=== PATIENT | female | born 2000 | race Caucasian/White ===

== ENCOUNTER 2019-11-19 13:41 | Emergency (ER) | payer OTHER, SELFPAY ==
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
[2019-11-19 13:47] VITALS: BP 149/98; PULSE 102; RESP 14; TEMP 37.1; O2SAT 100
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
--- NOTE | 2019-11-19 15:09 | PC.NURSE ---
eri at bedside to apply pat wrap. joyce sorensen at bedside and approved.
[2019-11-19 15:10] VITALS: BP 139/97; PULSE 109; RESP 18; O2SAT 97
== END 2019-11-19 15:12 | disposition home or self-care (01) ==
PROVIDERS: Emergency Provider Emergency Medicine
DX: S60.011A Contusion of right thumb without damage to nail, initial encounter (principal); V43.52XA Car driver injured in collision with other type car in traffic accident, initial encounter
CPT/HCPCS: 73140; 99283

== ENCOUNTER 2024-04-30 10:44 | Emergency (ER) | payer OTHER, SELFPAY ==
--- NOTE | ~2024-04-30 | US_ITS ---
Limited Abdominal Sonogram: Real-time sonographic imaging of the right upper quadrant was performed. Clinical History: Right upper quadrant pain Findings: The liver appears normal with no evidence of mass lesion or bile duct dilatation. Main por shaheen vein demonstrates normal direction of flow. The gallbladder is well distended, and appears normal with no evidence of gallstone or wall thickening. The common bile duct measures 2 mm. The visualize d pancreas, aorta, and IVC are unremarkable. Impression: No significant abnormality seen. Reviewed, dictated and finalized at location M. Impression: No significant abnormality seen.
[2024-04-30 11:00] VITALS: BP 124/80; PULSE 72; RESP 16; TEMP 36.6; O2SAT 100
[2024-04-30 11:18] LABS: BEDSIDEPREGUCG Negative (Negative)
[2024-04-30 11:30] LABS: Basophils Absolute Auto 0.1 K/mm3 (0.0-0.1); Basophils Percent Auto 0.8 % (0.2-1.2); Eosinophils Absolute Auto 0.1 K/mm3 (0-0.3); Eosinophils Percent Auto 1.8 % (0-4.4); Hematocrit 40.2 % (37.0-47.0); Hemoglobin 13.2 g/dL (12.0-15.0); Immature Granulocyte Absolute 0.03 K/mm3 (0.00-0.031); Immature Granulocyte Percent A 0.4 % (0-0.5); Lymphocytes Absolute Auto 2.85 K/mm3 (0.9-3.2); Lymphocytes Percent Auto 35.9 % (18.3-44.2); Mean Corpuscular HGB Conc 32.8 g/dl (32-36); Mean Corpuscular Hemoglobin 30.1 pg (26-34); Mean Corpuscular Volume 91.6 fl (80-100); Mean Platelet Volume 9.7 fl (7.4-10.4); Monocytes Absolute Auto 0.7 K/mm3 (0.1-0.6); Monocytes Percent Auto 9.1 % (2.6-8.5); Neutrophils Absolute Auto 4.1 K/mm3 (1.3-6.7); Platelet Count Result 337 k/mm3 (150-375); Red Blood Count 4.39 M/mm3 (4.2-5.4); Red Cell Distribution Width 12.6 % (11.5-14.5); White Blood Count 7.9 K/mm3 (4.5-10.0)
--- NOTE | 2024-04-30 11:38 | ED_ITS ---
HPI - Abdominal Pain General Chief Complaint: Abdominal Pain Stated Complaint: abd pain x 3 week Time Seen by Provider: 04/30/24 11:06 Source: patient Mode of arrival: ambulatory Limitations: no limitations History of Present Illness HPI narrative: This is a 23-year-old female who presents to the ED for chief complaint of right-sided abdominal pain beginning today. Patient states with the last couple of weeks she has had intermittent flank pain radiating into the right upper quadrant. States that she frequently has UTIs with urinary frequency and burning, however she is not having those symptoms today. Denies nausea, vomiting, diarrhea. Denies any specific pattern to the pain. She was told that it may be her gallbladder so she came to the ER. Denies fevers, chills, chest pain, shortness of breath. Related Data Home Medications ?Medication ?Instructions ?Recorded ?Confirmed ?Last Taken ?Type No Home Medications 11/19/19 Unknown History Allergies Allergy/AdvReac Type Severity Reaction Status Date / Time Penicillins Allergy Hives Verified 04/30/24 10:47 sulfamethoxazole (From Allergy Hives Verified 04/30/24 10:47 Sulfamethoxazole-Trimethoprim) trimethoprim (From Allergy Hives Verified 04/30/24 10:47 Sulfamethoxazole-Trimethoprim) Review of Systems 2 Review of Systems: All systems as dictated in [facility] Social History Social History (Updated 11/19/19 @ 14:11 by Blaine Benito, LISA) Smoking status: Never smoker Gender identity (if verbalized by the patient): Female Exam 2 Narrative: GENERAL: Well-appearing, well-nourished, and in no acute distress. HEAD: Normocephalic, atraumatic. EYES: PERRLA and EOMI. ENT: Nares clear, no rhinorrhea or epistaxis. Mucous membranes moist. Oropharynx without tonsillar hypertrophy exudate or other lesions. NECK: Supple. No adenopathy or masses. CHEST: No respiratory distress. Clear to auscultation. No wheezes rales or rhonchi HEART: Regular rate and rhythm. No murmur heard. Normal peripheral pulses. ABDOMEN: Soft, nontender, nondistended, normal active bowel sounds. Negative flank tenderness bilateral MSK: Normal range of motion. No edema. SKIN: Warm, dry, no rash. NEURO: Alert and oriented x4. No focal deficits. PSYCH: Normal mood and affect. Course Reevaluation(s) Reevaluation #1: Patient remains pain-free. Abdominal exam unchanged Date: 04/30/24 Time: 12:19 Vital Signs Vital signs: Vital Signs Temperature 97.9 F 04/30/24 11:00 Pulse Rate 72 04/30/24 11:00 Respiratory Rate 16 04/30/24 11:00 Blood Pressure 124/80 04/30/24 11:00 Pulse Oximetry 100 04/30/24 11:00 Temperature 97.9 F 04/30/24 12:23 Pulse Rate 78 04/30/24 12:23 Respiratory Rate 16 04/30/24 12:23 Blood Pressure 122/76 04/30/24 12:23 Pulse Oximetry 100 04/30/24 12:23 MDM - Abdominal Pain MDM Narrative Medical decision making narrative: This is a 23 female who presents to the ED for chief complaint of intermittent right upper quadrant and epigastric pain. Vitals are normal. Exam remarkable for the above with slight abdominal tenderness to the epigastrium. Urias sign equivocal. Lab work shows no acute findings with a normal white count. LFTs and bilirubin are normal. Right upper quadrant ultrasound shows no acute findings as well. Urinalysis does evidence of blood, however patient is currently on menstrual cycles, no concern for ureteral stone today. Patient feels reassured by the normal ultrasound. Discussed that her symptoms may be due to gastritis or biliary colic. Patient will be discharged in stable condition. Supportive measures discussed and return precautions given. Patient is understanding and agreeable with plan for discharge with PCP follow-up. Lab Data 04/30/24 11:20 04/30/24 11:20 Labs: Lab Results 04/30/24 04/30/24 04/30/24 Range/Units 11:13 11:15 11:20 WBC 7.9 (4.5-10.0) K/mm3 RBC 4.39 (4.2-5.4) M/mm3 Hgb 13.2 (12.0-15.0) g/dL Hct 40.2 (37.0-47.0) % MCV 91.6 (80-100) fl MCH 30.1 (26-34) pg MCHC 32.8 (32-36) g/dl RDW 12.6 (11.5-14.5) % Plt Count 337 (150-375) k/mm3 MPV 9.7 (7.4-10.4) fl Immature Gran % (Auto) 0.4 (0-0.5) % Neut % (Auto) 52.0 (45.5-73.1) % Lymph % (Auto) 35.9 (18.3-44.2) % Vermilion % (Auto) 9.1 H (2.6-8.5) % Eos % (Auto) 1.8 (0-4.4) % Baso % (Auto) 0.8 (0.2-1.2) % Lymph # (Auto) 2.85 (0.9-3.2) K/mm3 Vermilion # (Auto) 0.7 H (0.1-0.6) K/mm3 Eos # (Auto) 0.1 (0-0.3) K/mm3 Baso # (Auto) 0.1 (0.0-0.1) K/mm3 Abs Immat Gran (auto) 0.03 (0.00-0.031) K/mm3 Absolute Neuts (auto) 4.1 (1.3-6.7) K/mm3 Absolute Nucleated RBC 0.000 (0.0-0.012) K/mm3 Nucleated RBC % 0.0 (0.0-0.2) % Sodium 138 (137-145) mmol/L Potassium 3.7 (3.4-5.0) mmol/L Chloride 104 (98-107) mmol/L Carbon Dioxide 23 (22-30) mmol/L Anion Gap 11 (4-12) mmol/L BUN 8 (7-17) mg/dL Creatinine 0.62 L (0.7-1.0) mg/dL Estim Creat Clear Calc 137 ml/min Estimated GFR > 60 (59 - ) Glucose 92 (65-110) mg/dL Calcium 9.2 (8.4-10.2) mg/dL Total Bilirubin 0.4 (0.2-1.3) mg/dL AST 30 (14-36) U/L ALT 36 H (6-35) U/L Alkaline Phosphatase 73 (38-126) U/L Total Protein 8.0 (6.3-8.2) g/dL Albumin 4.6 (3.5-5.1) g/dL Lipase 98 (23-300) U/L Urine Color Yellow (Yellow) Urine Appearance Clear (Clear) Urine pH 6.0 (5.0-9.0) Ur Specific [place] 1.004 (1.001-1.035) Urine Protein Negative (Negative) mg/dL Urine Glucose (UA) Negative (Negative) mg/dL Urine Ketones Negative (Negative) mg/dL Ur Blood (Man) 3+ H (Negative) Urine Nitrate Negative (Negative) Urine Bilirubin Negative (Negative) Urine Urobilinogen 0.2 (<2.0) mg/dL Leukocyte Esterase Rfl Trace H (Negative) TIFFANY/UL Urine RBC 11-20 H (0-2) /hpf Urine WBC 0-5 (0-3) /hpf Ur Squamous Epith Cells None seen (Few) /hpf Urine Bacteria None seen /hpf Urine Casts 0-2 POC Urine HCG, Qual Negative (Negative) Imaging Data Radiologist's impression: ITS Impressions Abdomen Ultrasound 04/30/24 12:09 Impression: No significant abnormality seen. Discharge Plan Discharge Clinical Impression: Abdominal pain Patient Disposition: Home, Self-Care Condition: Stable Instructions: Antibiotic Form Additional Instructions: Exam and imaging today are reassuring overall. Please follow-up with PCP on this issue. If this issue continues she may need to see General surgery for biliary colic. Continue to avoid fatty foods. Suggest doubling your omeprazole until otherwise directed by PCP. If you have any new or worsening symptoms please return to the ER for further evaluation. Patient Language: Romanian Prescriptions: No Action No Home Medications Follow-up/Referrals: Jade Prater MD [Physician] - UNKNOWN,DOCTOR [Primary Care Provider] - Time of Disposition: 12:22
[2024-04-30 11:41] LABS: Add Urine Microscopic? YES; Appearance Urine Clear (Clear); Bacteria Urine None Seen /hpf; Bilirubin Urine Negative (Negative); Blood Urine 3+ (Negative); Color Urine Yellow (Yellow); Glucose Urine UA Negative (Negative); Ketones Urine Negative (Negative); Leukocyte Esterase Ur Trace LEU/UL (Negative); Nitrate Urine Negative (Negative); Non Pathogenic Casts 0-2; Protein Urine Negative (Negative); Specific Grav Ur 1.004 (1.001-1.035); Squamous Epithelial Cell Urine None Seen /hpf (Few); Urobilinogen Urine 0.2 mg/dL (<2.0); WBC Urine 0-5 /hpf (0-3)
[2024-04-30 11:44] LABS: Alanine Aminotransferase 36 U/L (6-35); Albumin Level 4.6 g/dL (3.5-5.1); Alkaline Phosphatase 73 U/L (38-126); Anion Gap 11 mmol/L (4-12); Aspartate Amino Transferase 30 U/L (14-36); Bilirubin,Total 0.4 mg/dL (0.2-1.3); Blood Urea Nitrogen 8 mg/dL (7-17); Calcium 9.2 mg/dL (8.4-10.2); Carbon Dioxide 23 mmol/L (22-30); Chloride 104 mmol/L (98-107); Estimated CRCL calculation 137 ml/min; Estimated Glomerular Filt Rate > 60; Glucose 92 mg/dL (65-110); Lipase 98 U/L (23-300); Potassium 3.7 mmol/L (3.4-5.0); Sodium 138 mmol/L (137-145)
--- OUTSIDE RECORDS SUMMARY | 2024-04-30 12:09 | XMS_ITS | Clinical Summary ---
Author Organization [facility] Address [address] [place] [address] Care Team Providers Care Pound Attendant Name Role Phone Sadaf Christensen Primary Care Provider [phone] Allergies Active Allergy Reactions Criticality Noted Date Comments Penicillin V Unknown 01/14/2021 Sulfa Antibiotics Unknown 11/28/2018 Medications doxycycline hyclate (VIBRAMYCIN) 100 MG capsule TAKE 1 CAPSULE BY MOUTH TWICE DAILY FOR 7 DAYS 02/01/2022 Active escitalopram (LEXAPRO) 10 MG tablet Take 10 mg by mouth daily. 01/12/2022 Active methylPREDNISol one, RADHA, (MEDROL DOSEPAK) 4 MG tablet Take 1 tablet (4 mg total) by mouth daily. 6 TABLETS ON DAY ONE, 5 TABLETS DAY TWO, 4 TABLETS DAY THREE, 3 TABLETS DAY FOUR, 2 TABLETS DAY FIVE, AND 1 TABLET DAY SIX 1 each 02/03/2022 Active guaiFENesin ER (MUCINEX) 600 MG 12 hr tablet Take 2 tablets (1,200 mg total) by mouth 2 (two) times daily. 28 tablet 02/03/2022 Active Active Problems No known active problems Family History Medical History Relation Comments Cancer Father liver cancer Diabetes Father Cancer Mother retinal cancer Relation Status Comments Father Alive Mother Alive Social History Tobacco Use Types Packs/Day Years Used Date Smoking Tobacco: Never Smokeless Tobacco: Never Tobacco Cessation:Counseling Given: Not Answered Alcohol Use Standard Drinks/Week Comments Yes 0 (1 standard drink = 0.6 oz pur e alcohol) socially Comments No Sex and Gender Information Value Date Recorded Sex Assigned at Not on file Legal Sex Female 8:25 PM CDT Gender Identity Not on file Sexual Orientation Not on file Last Filed Vital Signs Vital Sign Reading Time Taken Comments Blood Pressure 108/74 08/22/2022 11:30 AM CDT Pulse 68 08/22/2022 11:30 AM CDT Temperature 36.4 C (97.5 F) 08/22/2022 10:14 AM CDT Respiratory Rate 14 08/22/2022 11:3 0 AM CDT Oxygen Saturation 98% 08/22/2022 11: 30 AM CDT Inhaled Oxygen Concentration - - Weight 108.3 kg (238 lb 12.1 oz) 2022 10:16 AM CDT Height 162.6 cm (5' 4 ) 08/22/2022 10:1 4 AM CDT Body Mass Index 40.98 08/22/2022 10:14 AM CDT Plan of Treatment Upcoming Encounters Date Type Department Care Team (Late st Contact Info) Description 05/16/2024 2:20 PM CDT Office Visit [facility] - [place] [address] [place] [address] Sadaf Christensen, [address] [place] [address] Health Maintenance Due Date Last Done Comments Cervical Cancer Screening Pap Smear (Age 21 to 29) Every 3 Years 1999 Cervical Cancer Screening 1999 Annual Physical 08/22/2002 Hepatitis C 08/22/2017 DTaP, Tdap and Td Vaccines (7 - Td or Tdap) 09/27/2020 09/27/2010, 11/16/2004, 02/26/2001, Additional history exists COVID-19 Vaccine ( season) 2023 03/15/2020, 02/23/2020 Influenza Adult (#1) 2023 03/01/2013 Hepatitis B Vaccines Completed 05/30/2000, 1999, 1999 Pneumococcal Vaccine: Pediatrics (0 to 5 Years) and At-Risk Patients (6 to 64 Years) Aged Out 11/23/2000, 03/21/2000, 1999, Additional history exists No longer eligible based on patient's age to complete this topic HPV Vaccines Completed 06/03/2011, 12/14, 09/27/2010 Meningococcal Vaccine Completed 08/24/2015, 011 Meningococcal B Vaccine Aged Out No l onger eligible based on patient's age to complete this topic RSV Immunizations Under 20 Months Aged Out No longer eligible based on patient's age to complete this topic Insurance [employer] OPEN ACCESS [facility] Member Subscriber Plan / Payer (Ef fective 2024-Present) Name:Epifanio Moore Relation to Subscriber:Self Name:Epifanio Moore Payer ID:Not on file Group ID:Not on file Type:Not on file Address: [facility] [id number] [place] [id number] Care Teams Pound Attendant Relationship Specialty Start Date End Date Sadaf Christensen DO [address] [facility] [address] [place] [address] PCP - General FAMILY PRACTICE 04/29/24
--- OUTSIDE RECORDS SUMMARY | 2024-04-30 12:09 | XMS_ITS | Encounter Summary ---
Author Organization [facility] Address [address] [place] [address] Care Team Providers Care Tennis Player Name Role Phone , Generic Conversion Primary Care Provider Unavailable Anila Le MD Primary Care Provider [phone] None, Provider Primary Care Provider UnavailSuzan Taylor DO Primary Care Provider [phone] Sadaf Christensen DO Primary Care Provider [phone] Encounter Details Date Type Department Care Team (Late st Contact Info) Description 12/17/2016 [place] [address] Md Generic ConversionMD Social History Tobacco Use Types Packs/Day Years Used Date Smoking Tobacco: Never Assessed Comments Unknown Sex and Gender Information Value Date Recorded Sex Assigned at Not on file Legal Sex Female 8:25 PM CDT Gender Identity Not on file Sexual Orientation Not on file documented as of this encounter Plan of Treatment Upcoming Encounters Date Type Department Care Team (Late st Contact Info) Description 05/16/2024 2:20 PM CDT Office [facility] - [place] [address] [place], [place] [id number] Sadaf Christensen DO [address] [place] [address] documented as of this encounter Visit Diagnoses Not on filedocumented in this encounter Care Teams Tennis Player Relationship Specialty Start Date End Date Escobar Larson MD PCP - General 03/09/15 Anila Le MD PCP - General PEDIATRICS 11/28/18 01/13/21 None, Provider, PCP - General 01/14/21 02/02/22 Suzan Pena DO PCP - General FAMILY PRACTICE 02/03/22 04/28/24 Sadaf Christensen DO [address] [facility] [address] [place] [address] PCP - General FAMILY PRACTICE 04/29/24 documented as of this encounter
--- OUTSIDE RECORDS SUMMARY | 2024-04-30 12:09 | XMS_ITS | Clinical Summary ---
Author Organization [facility] Address [address] [place] [address] Care Team Providers Care Supervisor Pleating Name Role Phone Unavailable Primary Care Provider Unavailabl e Source Comments [facility],non-owned Affiliates and Associated Physician Practices is amultiple site organization consisting of ambulatory clinics and hospital sitesin [place], [place], [place] and [place]. This disclosure is being madepursuant to the Care Everywhere program and may not contain all information available regarding this patient. Last updated 17.[facility] Social History Tobacco Use Types Packs/Day Years Used Date Smoking Tobacco: Never Assessed Sex and Gender Information Value Date Recorded Sex Assigned at Not on file Gender Identity Not on file Sexual Orientation Not on file Plan of Treatment Health Maintenance Due Date Last Done Comments PAP SMEAR 1999 HIV SCREENING 08/22/2014 HPV VACCINE (1 - 3-dose series) 08/22/2014 CHLAMYDIA/GONORRHEA SCREENING 2015 HEPATITIS C SCREENING 08/18/2017 DTAP/TDAP/TD VACCINES (1 - Tdap) 08/22/2018 HEPATITIS B VACCINE (1 of 3 - 19+ 3-dose series) 08/22/2018 COVID-19 VACCINE (1 - 2023-2 5 season) 2023 INFLUENZA VACCINE (#1) 2023 DEPRESSION SCREENING 02/14/2024 ZOSTER VACCINE (1 of 2) 08/22/2049 HIB VACCINE Aged Out No longer eligi ble based on patient's age to complete this topic MENINGOCOCCAL (Group B) VACC INE SHARED DECISION-MAKING Aged Out No longer eligibl e based on patient's age to complete this topic MENINGOCOCCAL GROUPS A/C/Y/W VACCINE Aged Out No longer eligible b ased on patient's age to complete this topic PNEUMOCOCCAL VACCINE Aged Out No long er eligible based on patient's age to complete this topic
[2024-04-30 12:23] VITALS: BP 122/76; PULSE 78; RESP 16; TEMP 36.6; O2SAT 100
--- OUTSIDE RECORDS SUMMARY | 2024-04-30 12:58 | XMS_ITS | Clinical Summary ---
Author Organization [facility] Address [address] [place] [address] Care Team Providers Care Pharmacy Operations Specialist Name Role Phone Sadaf Christensen Primary Care Provider [phone] Allergies Active Allergy Reactions Criticality Noted Date [...] Description 05/16/2024 2:20 PM CDT Office Visit [facility] - [place] [address] [place] [address] Sadaf Christensen, [address] [place] [address] Health Maintenance Due Date Last Done Comments [...] patient's age to complete this topic Insurance [employer] OPEN ACCESS [facility] Member Subscriber Plan / Payer (Ef fective 2024-Present) Name:Epifanio Moore Relation to Subscriber:Self Name:Epifanio Moore Payer ID:Not on file Group ID:Not on file Type:Not on file Address: [facility] [id number] [place] [id number] Care Teams Pharmacy Operations Specialist Relationship Specialty Start Date End Date Sadaf Christensen DO [address] [facility] [address] [place] [address] PCP - General FAMILY PRACTICE 04/29/24
--- OUTSIDE RECORDS SUMMARY | 2024-04-30 12:58 | XMS_ITS | Encounter Summary ---
Author Organization [facility] Address [address] [place] [address] Care Team Providers Care Hospital Orderly Name Role Phone , Generic Conversion Primary Care Provider Unavailable Anila Le MD Primary Care Provider [phone] None, Provider Primary Care Provider UnavailSuzan Taylor DO Primary Care Provider [phone] Sadaf Christensen DO Primary Care Provider [phone] Encounter Details Date Type Department Care Team (Late st Contact Info) Description 12/17/2016 [place] [address] Md Generic ConversionMD Social History Tobacco Use [...] Description 05/16/2024 2:20 PM CDT Office Visit [facility] Medical [facility] Mult[facility] - [place] [address] [place], [place] [id number] Sadaf Christensen DO [address] [place] [address] documented as of this encounter Visit Diagnoses Not on filedocumented in this encounter Care Teams Hospital Orderly Relationship Specialty Start Date End Date Escobar Larson MD PCP - General 03/09/15 Anila Le MD PCP - General PEDIATRICS 11/28/18 01/13/21 None, Provider, PCP - General 01/14/21 02/02/22 Suzan Pena DO PCP - General FAMILY PRACTICE 02/03/22 04/28/24 Sadaf Christensen DO [address] [facility] [place] [address] PCP - General FAMILY PRACTICE 04/29/24 documented as of this encounter
--- OUTSIDE RECORDS SUMMARY | 2024-04-30 12:58 | XMS_ITS | Clinical Summary ---
Author Organization [facility] Address [address] [facility] [place] [address] Care Team Providers Care Petal Cutter Name Role Phone Unavailable Primary Care Provider Unavailabl e Source Comments [facility] [employer],non-owned Affiliates and Associated Physician Practices is amultiple site organization consisting of ambulatory clinics and hospital sitesin [place], [place], [place] and [place]. This disclosure is being madepursuant to the Care Everywhere program and may not contain all information available regarding this patient. Last updated 17.[facility] [facility] Social History Tobacco Use Types Packs/Day Years [...]
== END 2024-04-30 12:35 | disposition home or self-care (01) ==
PROVIDERS: Emergency Provider Physician Assistant
DX: R10.9 Unspecified abdominal pain (principal)
CPT/HCPCS: 36415; 76705; 80053; 81001; 81025; 83690; 85025; 99284

== ENCOUNTER 2024-05-22 15:56 | Outpatient (CLI) | payer OTHER, SELFPAY ==
[2024-05-22 16:38] LABS: Amylase 66 U/L (30-110)
--- OUTSIDE RECORDS SUMMARY | 2024-05-22 17:02 | XMS_ITS | Encounter Summary ---
Author Organization [facility] Address [address] [place] [id number] Care Team Providers Care Supervisor [employer] Name Role Phone , Generic Conversion Primary Care Provider Unavailable Anila Le MD Primary Care Provider [phone] None, Provider Primary Care Provider UnavailSuzan Taylor DO Primary Care Provider [phone] Sadaf Christensen DO Primary Care Provider [phone] Encounter Details Date Type Department Care Team (Late st Contact Info) Description 12/17/2016 [place] [address] Md Generic ConversionMD Social History Tobacco Use [...] Care Team (Late st Contact Info) Description 06/06/2024 3:40 PM CDT Office Visit [facility] [place] [address] [place], [place] [id number] Sadaf Christensen DO [address] [place] [address] documented as of this encounter Visit Diagnoses Not on filedocumented in this encounter Care Teams Supervisor [employer] Relationship Specialty Start Date End Date Escobar Larson MD PCP - General 03/09/15 Anila Le MD PCP - General PEDIATRICS 11/28/18 01/13/21 None, Provider, PCP - General 01/14/21 02/02/22 Suzan Pena DO PCP - General FAMILY PRACTICE 02/03/22 04/28/24 Sadaf Christensen DO [address] [facility] [address] [place] [address] PCP - General FAMILY PRACTICE 04/29/24 documented as of this encounter
--- OUTSIDE RECORDS SUMMARY | 2024-05-22 17:02 | XMS_ITS | Clinical Summary ---
Author Organization [facility] Address [address] [place] [address] Care Team Providers Care Tree Surgeon Name Role Phone Mariann Christensenh Thalia HASKINS Primary Care Provider [phone] Allergies Active Allergy Reactions Criticality Noted Date Comments Penicillin V Unknown 01/14/2021 From childhood Sulfa Antibiotics Unknown 11/28/2018 From childhood Medications spironolactone (ALDACTONE) 100 MG tablet Take 1 tablet (100 mg total) by mouth daily. 4 Active clindamycin (CLEOCIN) 75 MG/5ML solution Take by mouth 3 (three) times daily. Active escitalopram (LEXAPRO) 10 MG tabletIndication s:Generalized anxiety disorder Take 1 tablet (10 mg total) by mouth daily. 90 tablet 5 08/16/19 25 Active doxycycline hyclate (VIBRAMYCIN) 100 MG capsule TAKE 1 CAPSULE BY MOUTH TWICE DAILY FOR 7 DAYS 2 05/17/19 25 Discontinue d(Therapy completed) escitalopram (LEXAPRO) 10 MG tablet Take 10 mg by mouth daily. 2 05/17/19 25 Discontinue d(Therapy completed) methylPREDNISRADHA peterson, (MEDROL DOSEPAK) 4 MG tablet Take 1 tablet (4 mg total) by mouth daily. 6 TABLETS ON DAY ONE, 5 TABLETS DAY TWO, 4 TABLETS DAY THREE, 3 TABLETS DAY FOUR, 2 TABLETS DAY FIVE, AND 1 TABLET DAY SIX 1 each 2 05/17/19 25 Discontinue d(Therapy completed) guaiFENesin ER (MUCINEX) 600 MG 12 hr tablet Take 2 tablets (1,200 mg total) by mouth 2 (two) times daily. 28 tablet 2 05/17/19 25 Discontinue d(Therapy completed) omeprazole DR 20 MG Tablet Delayed Release Dispersible dispersible tablet Take 40 mg by mouth daily. 05/17/19 25 Discontinue d(Other- Please enter comment in Notes field) Active Problems Problem Noted Date Diagnosed Date Pain of upper abdomen 05/16/2024 Overview (05/16/2024): Initial visit 05/16/2024: She reports she went to emergency department at [place] 04/30/2024 for abdominal pain. She reports abdominal pain started out with just eating food however last Monday she was having a weird burning sensation which prompted her to go to the emergency department. She reports nausea comes and goes however denies vomiting. She reports she was told it was biliary colic and was referred and has upcoming appointment with general surgery 05/21/2024 for evaluation. She reports she is on a low-fat diet which does seem to help. She denies possibility of as she is sexually active with a woman. Assessment & Plan (05/16/2024 3:30 PM CDT): Exam unremarkable. Etiology of pain could be related to biliary colic. Follow-up with general surgeon as scheduled. She may need MRCP. Requested records from ED visit at [facility]. Cervical cancer screening 05/16/2024 Overview (05/16/2024): Initial visit 05/16/2024: She reports she had Pap in [address] Suzan Pena through [facility]. Assessment & Plan (05/16/2024 3:27 PM CDT): Requesting records. Class 3 severe obesity witho ut serious comorbidity with body mass index (BMI) of 40.0 to 44.9 in adult, unspecified obesity type 05/16/2024 Gastroesophageal reflux disease without esophagi tis 05/16/2024 Overview (05/16/2024): Initial visit 05/16/2024: She reports she has had reflux and been taking omeprazole 20 mg daily on and off since the age of 17. Assessment & Plan (05/16/2024 3:28 PM CDT): Discussed with patient that I would like to test her for Helicobacter pylori infection with the stool sample however I need her to discontinue PPI for at least 14 days prior to collecting stool sample. She is agreeable and will complete through [facility]. Generalized anxiety disorder 05/16/2024 Overview (05/16/2024): Initial visit 05/16/2024: Was on Lexapro for 1.5 years however had a hard time taking pills daily. She reports she used to go to therapy and was able to develop coping mechanisms. She reports her anxiety revolves primarily around her being in a car. She reports it is better if she is driving. TAVO-7 (Generalized Anxiety Disorder) Screening 05/16/2024 2:55 PM TAVO-7 Feeling nervous, anxious, or on edge 1 Not being able to stop or control worrying 1 Worrying too much about different things 1 Trouble relaxing 0 Being so restless that it is hard to sit still 0 Becoming easily annoyed or irritable 1 Feeling afraid as if something awful might happen 0 TAVO-7 Total Score 4 How difficult have these problems made it for you to do your work, take care of things at home, or get along with other people? Somewhat difficult Assessment & Plan (05/16/2024 3:26 PM CDT): We will start patient on escitalopram 10 mg once daily. She is counseled on potential side effects of medication and is aware she has been on this medication previously. Mild intermittent asthma without complication (H HS/HCC) 05/16/2024 Overview (05/16/2024): Initial visit 05/16/2024: She reports she hasn't had inhaler in years . Assessment & Plan (05/16/2024 3:29 PM CDT): Stable. Continue to monitor. Stomach pain 04/13/2024 Overview (05/16/2024): Went to ER for stomach pain and sharp cramps on both sides of upper the upper abdomen. They did an ultrasound and blood test but both were negative. Stated since everything was looking normal they thought it could still be my gallbladder but it wasn't inflamed so they referred me to a general surgeon and told me to see PCP. Hidradenitis suppurativa 08/03/2023 Overview (05/16/2024): Initial visit for 325: She reports she has hidradenitis suppurativa and follows with Derm once every 6 months. She reports she is on spironolactone 100 mg daily and clindamycin topical solution. She reports it is controlled. Assessment & Plan (05/16/2024 3:27 PM CDT): Continue plan of care per dermatology. Resolved Problems Problem Noted Date Diagnosed Date Resolved Date Cervical cancer screening 05/07/2024 Encounters Date Type Department Care Team Description 05/16/2024 2:20 PM CDT Office Visit [facility] [place] [address] [place] [address] Sadaf Christensen, DO New Patient (Pt states she is having ABD issues and sees a general surgeon [facility]. /But wanted to get a PCP to see if there were any other recommendations pt states she has been on a low fat diet for 4 weeks. /) 05/16/2024 Travel from Last 3 Months Immunizations Name Administration Dates Next Due Dtap (Acel-Immune) 11/16/2004, 2,03/21/2000,12/14,1999 HPV4 (Gardasil) 06/03/2011,12/24/2010,09/27/2010 Hepatitis A (Generic) 09/27/2010 Hepatitis A (Havrix [address].U) 11/21/2006 Hepatitis B Pediatric 05/30/2000,1999,08/13 Hib (Generic) 02/26/2001, 1,1999,10/14 Influenza Adult (Generic) 03/01/2013 MENINGOCOCCAL A C Y&W-135 oligosaccharide (MENVEO) 08/24/2015,09/27/2010 MMR (MMRII) 11/16/2004,11/23/2000 PFIZER COVID-19 (ORIGINAL FO RMULATION, PURPLE CAP) mRNA, LNP-S, PF, 30 MCG/0.3 ML DOSE 03/15/2020,02/23/2020 Pneumococcal (Prevnar 7) 11/23/2000,07/2000,1999,10/14 Polio IPV (Ipol) 11/16/2004, 2,1999,10/14 Tdap (Adacel) 05/16/2024 Tdap (Generic) 09/27/2010 Varicella (Varivax) 11/21/2006,08/29/2000 Family History Medical History Relation Comments Alcohol Abuse Father Asthma Father Cancer Father liver cancer Diabetes Father Drug Abuse Father Early Father Cancer Mother retinal cancer Depression Mother Drug Abuse Mother Hypertension Mother Alcohol Abuse Paternal Grandfather Early Paternal Grandfather Relation Status Comments Father Alive Mother Alive Paternal Grandfather Social History Tobacco Use Types Packs/Day Years Used Date Smoking Tobacco: Never Smokeless Tobacco: Never Tobacco Cessation:Counseling Given: No Alcohol Use Standard Drinks/Week Comments Not Currently 0 (1 standard drink = 0.6 oz pur e alcohol) socially PHQ-2 Answer Date Recorded Patient Health Questionnaire-2 Score 0 05/16/2024 Comments No Sex and Gender Information Value Date Recorded Sex Assigned at Not on file Legal Sex Female 8:25 PM CDT Gender Identity Not on file Sexual Orientation Not on file Last Filed Vital Signs Vital Sign Reading Time Taken Comments Blood Pressure 126/81 05/16/2024 2:20 PM CDT Pulse 68 05/16/2024 2:20 PM CDT Temperature 36.5 C (97.7 F) 05/16/2024 2:20 PM CDT Respiratory Rate 16 05/16/2024 2:20 PM CDT Oxygen Saturation 100% 05/16/2024 2:20 PM CDT Inhaled Oxygen Concentration - - Weight 106.6 kg (235 lb) 05/16/2024 2:20 PM CDT Height 162.6 cm (5' 4 ) 05/16/2024 2:20 PM CDT Body Mass Index 40.34 05/16/2024 2:20 PM CDT Plan of Treatment Upcoming Encounters Date Type Department Care Team (Late st Contact Info) Description 06/06/2024 3:40 PM CDT Office Visit [facility] [place] [address] [place] [address] Sadaf Christensen, DO [address] [place] [address] Health Maintenance Due Date Last Done Comments Cervical Cancer Screening Pap Smear (Age 21 to 29) Every 3 Years 1999 Cervical Cancer Screening 1999 Annual Physical 08/22/2002 Pneumococcal Vaccine: Pediatrics (0 to 5 Years) and At-Risk Patients (6 to 64 Years) (1 of 2 - PCV) 08/22/2005 11/23/2000, 03/21/2000, 1999, Additional history exists Chlamydia Screening Females ages 16-24 2015 Hepatitis C 08/22/2017 COVID-19 Vaccine ( season) 2025 03/15/2020, 02/23/2020 Postponed from 10/15/2023 (Patient Refused) DTaP, Tdap and Td Vaccines (8 - Td or Tdap) 05/16/2034 05/16/2024, 09/27/2010, 11/16/2004, Additional history exists Hepatitis B Vaccines Completed 05/30/2000, 1999, 1999 HPV Vaccines Completed 06/03/2011, 12/14, 09/27/2010 Meningococcal Vaccine Completed 08/24/2015, 011 PHQ-2 (Physician [place]) Completed 05/16/2024 Meningococcal B Vaccine Aged Out No l onger eligible based on patient's age to complete this topic RSV Immunizations Under 20 Months Aged Out No longer eligible based on patient's age to complete this topic Procedures Procedure Name Priority Date/Time Associated Diagnosis Comments CBC W/DIFF AUTOMATED Routine 05/16/2024 3:25 PM CDT Class 3 severe obesity without serious comorbidity with body mass index (BMI) of 40.0 to 44.9 in adult, unspecified obesity type (CMS/HCC) COMPREHENSIVE METABOLIC PANEL Routine 05/16/2024 3:25 PM CDT Class 3 severe obesity without serious comorbidity with body mass index (BMI) of 40.0 to 44.9 in adult, unspecified obesity type (CMS/HCC) LIPID PANEL Routine 05/16/2024 3:25 PM CDT Class 3 severe obesity without serious comorbidity with body mass index (BMI) of 40.0 to 44.9 in adult, unspecified obesity type (CMS/HCC) VITAMIN D, 25 OH Routine 05/16/2024 3:25 PM CDT Class 3 severe obesity without serious comorbidity with body mass index (BMI) of 40.0 to 44.9 in adult, unspecified obesity type (CMS/HCC) TSH W/REFLEX Routine 05/16/2024 3:25 PM CDT Class 3 severe obesity without serious comorbidity with body mass index (BMI) of 40.0 to 44.9 in adult, unspecified obesity type (CMS/HCC) HEMOGLOBIN, GLYCOSYLATED Routine 05/16/2024 3:25 PM CDT Class 3 severe obesity without serious comorbidity with body mass index (BMI) of 40.0 to 44.9 in adult, unspecified obesity type (CMS/HCC) URINALYSIS, AUTO, COMPLETE Routine 05/16/2024 3:25 PM CDT Class 3 severe obesity without serious comorbidity with body mass index (BMI) of 40.0 to 44.9 in adult, unspecified obesity type (CMS/HCC) from Last 3 Months Results * TSH W/REFLEX (05/16/2024 3:25 PM CDT) TSH 1.330 0.358 - 3.740 uIU/ML 05/17/2024 11:52 AM CDT [facility] 05/16/2024 3:25 PM CDT Sadaf Vásquez Fermin HASKINS LABORATORY Final Result Performing Organization Address [facility] Co de Phone Number [facility] [address] [place] [address], [place] [phone] * (ABNORMAL) HEMOGLOBIN, GLYCOSYLATED (05/16/2024 3:25 PM CDT) HGB A1C 5.4 4.5 - 6.2 % 05/17/2024 9:51 AM CDT [facility] ESTIMATED AVG GLUCOSE 108(H) 74 - 106 MG/DL 05/17/2024 9:51 AM CDT [facility] 05/16/2024 3:25 PM CDT Sadaf Thalia Christensen DO LABORATORY Final Result Performing Organization Address [facility] de Phone Number [facility] [address] [place] [address], [place] [phone] * (ABNORMAL) URINALYSIS (05/16/2024 3:25 PM CDT) COLOR (U) YELLOW 05/16/2024 7:42 PM CDT [facility] TRANSPARENCY CLEAR CLEAR 05/16/2024 7:42 PM CDT [facility] SPECIFIC GRAVITY (U) 1.020 1.003 - 1.040 05/16/2024 7:42 PM CDT [facility] U PH 6.0 5.0 - 9.0 05/16/2024 7:42 PM CDT [facility] PROTEIN RANDOM (U) NEGATIVE NEGATIVE 05/16/2024 7:42 PM CDT [facility] GLUCOSE (U) NEGATIVE NEGATIVE 05/16/2024 7:42 PM CDT [facility] KETONES MG/DL (U) NEGATIVE NEGATIVE 05/16/2024 7:42 PM CDT [facility] BILIRUBIN (U) NEGATIVE NEGATIVE 05/16/2024 7:42 PM CDT [facility] BLOOD (U) NEGATIVE NEGATIVE 05/16/2024 7:42 PM CDT [facility] UROBILINOGEN 0.2 0.0 - 2.0 EU/DL 05/16/2024 7:42 PM CDT [facility] NITRITES NEGATIVE NEGATIVE 05/16/2024 7:42 PM CDT [facility] LEUKOCYTES (U) NEGATIVE NEGATIVE 05/16/2024 7:42 PM CDT [facility] RBC/HPF 0-3 0 - 3 /HPF 05/16/2024 7:42 PM CDT [facility] WBC/HPF 0-3 0 - 3 /HPF 05/16/2024 7:42 PM CDT [facility] EPI/HPF 0-3 /HPF 05/16/2024 7:42 PM CDT [facility] BACTERIA (U) TRACE(A) NONE SEEN 05/16/2024 7:42 PM CDT [facility] MUCUS FEW 05/16/2024 7:42 PM CDT [facility] URINE SPECIMEN FROM [facility] / Unknown 05/16/2024 3:25 PM CDT Sadaf Christensen DO URINE ORDERABLES Final Result [facility] [address] [place] [address], * COMPREHENSIVE METABOLIC PANEL (05/16/2024 3:25 PM CDT) SODIUM S/P/B 138 136 - 145 MMOL/L 05/17/2024 11:52 AM CDT [facility] POTASSIUM S/P/B 4.1 3.5 - 5.1 MMOL/L 05/17/2024 11:52 AM CDT [facility] CHLORIDE S/P/B 102 98 - 107 MMOL/L 05/17/2024 11:52 AM CDT [facility] CO2 28.3 21 - 32 MMOL/L 05/17/2024 11:52 AM CDT [facility] GLUCOSE 87 70 - 99 MG/DL 05/17/2024 11:52 AM CDT [facility] BUN 8 7 - 18 MG/DL 05/17/2024 11:52 AM CDT [facility] CREATININE S/P/B 0.68 0.55 - 1.02 MG/DL 05/17/2024 11:52 AM CDT [facility] CALCIUM S/P/B 9.3 8.4 - 10.5 MG/DL 05/17/2024 11:52 AM CDT [facility] BILIRUBIN TOTAL S/P/B 0.2 0.2 - 1.0 MG/DL 05/17/2024 11:52 AM CDT [facility] ALKALINE PHOSPHATASE S/P/B 76 37 - 98 U/L 05/17/2024 11:52 AM CDT [facility] AST 26 15 - 37 U/L 05/17/2024 11:52 AM CDT [facility] ALT 48 14 - 59 U/L 05/17/2024 11:52 AM CDT [facility] TOTAL PROTEIN S/P/B 8.1 6.4 - 8.2 G/DL 05/17/2024 11:52 AM CDT [facility] ALBUMIN S/P/B 4.3 3.4 - 5.0 G/DL 05/17/2024 11:52 AM CDT [facility] ANION GAP 7.7 5 - 15 MMOL/L 05/17/2024 11:52 AM CDT [facility] Comment:REFERENCE RANGE NOT ESTABLISHED OSMOLALITY (CALC) 284 MOSM/KG 025 11:52 AM CDT [facility] Comment:REFERENCE RANGE NOT ESTABLISHED GFR ESTIMATE >90 >90 ML/MIN/1. 73 M2 05/17/2024 11:52 AM CDT [facility] GFR NOTES GFR REFERENCE S: 05/17/2024 11:52 AM CDT [facility] Comment: THE ESTIMATED GFR IS CALCULATED USING THE 2020 CKD-EPI EQUATION. THE FOLLOWING CATEGORIES FOR GRADING RENAL FUNCTION ARE RECOMMENDED BY THE INTERNATIONAL SOCIETY OF NEPHROLOGY (KDIGO 2012 CLINICAL PRACTICE GUIDELINE). G1,NORMAL OR HIGH: >89 ml/min/1.73 m2 G2,MILDLY DECREASED: 60-89 ml/min/1.73 m2 G3A,MILDLY TO MODERATELY DECREASED: 45-59 ml/min/1.73 m2 G3B,MODERATELY TO SEVERELY DECREASED: 30-44 ml/min/1.73 m2 G4,SEVERELY DECREASED: 15-29 ml/min/1.73 m2 G5,KIDNEY FAILURE: <15 ml/min/1.73 m2 05/16/2024 3:25 PM CDT Sadaf Christensen DO LABORATORY Final Result [facility] [address] [place] [address], * (ABNORMAL) LIPID PANEL (05/16/2024 3:25 PM CDT) CHOLESTEROL 144 <200 MG/DL 05/17/2024 11:52 AM CDT [facility] TRIGLYCERIDES 97 <150 MG/DL 05/17/2024 11:52 AM CDT [facility] HDL 34(L) >40 MG/DL 05/17/2024 11:52 AM CDT [facility] LDL-C 91 <100 MG/DL 05/17/2024 11:52 AM CDT [facility] VLDL CALCULATION 19 5 - 28 MG/DL 05/17/2024 11:52 AM CDT [facility] CHOL/HDL RATIO 4.2(H) 0.0 - 4.0 05/17/2024 11:52 AM CDT [facility] LDL/HDL 2.7(H) 0.41 - 2.13 05/17/2024 11:52 AM CDT [facility] NON HDL CHOLESTEROL 110 <140 MG/DL 05/17/2024 11:52 AM CDT [facility] 05/16/2024 3:25 PM CDT Sadaf Christensen DO LABORATORY Final Result [facility] [address] [place] [address], * (ABNORMAL) CBC W/DIFF AUTOMATED (05/16/2024 3:25 PM CDT) WBC 9.20 4.00 - 10.80 x10'3/uL 05/16/2024 7:38 PM CDT [facility] RBC 4.57 4.10 - 5.40 x10'6/uL 05/16/2024 7:38 PM CDT [facility] HGB 13.6 12.0 - 16.0 G/DL 05/16/2024 7:38 PM CDT [facility] HCT 41.2 36.0 - 47.0 % 05/16/2024 7:38 PM CDT [facility] MCV 90.2 78.0 - 100.0 FL 05/16/2024 7:38 PM CDT [facility] MCH 29.8 27.0 - 31.0 PG 05/16/2024 7:38 PM CDT [facility] MCHC 33.0 33.0 - 36.0 G/DL 05/16/2024 7:38 PM CDT [facility] RDW 12.3 11.5 - 14.5 % 05/16/2024 7:38 PM CDT [facility] PLT 411(H) 150 - 350 x10'3/uL 05/16/2024 7:38 PM CDT [facility] MPV 10.5(H) 7.4 - 10.4 FL 05/16/2024 7:38 PM CDT [facility] DIFFERENTIAL TYPE AUTOMATED DIFFERENTIAL 05/16/2024 7:38 PM CDT [facility] NEUTROPHILS % 62.2 % 05/16/2024 7:38 PM CDT [facility] LYMPHOCYTES % 28.9 % 05/16/2024 7:38 PM CDT [facility] MONOCYTES % 6.5 % 05/16/2024 7:38 PM CDT [facility] EOSINOPHIL[facility] % 1.6 % 05/16/2024 7:38 PM CDT [facility] BASOPHILS % 0.5 % 05/16/2024 7:38 PM CDT [facility] IMMATURE GRANS % 0.3 % 05/16/2024 7:38 PM CDT [facility] ABS. NEUTROPHILS 5.71 1.60 - 8.30 x10'3/uL 05/16/2024 7:38 PM CDT [facility] ABS. LYMPHOCYTES 2.66 0.80 - 4.70 x10'3/uL 05/16/2024 7:38 PM CDT [facility] ABS. MONOCYTES 0.60 0.00 - 1.50 x10'3/uL 05/16/2024 7:38 PM CDT [facility] ABS. EOSINOPHILS 0.15 0.00 - 0.40 x10'3/uL 05/16/2024 7:38 PM CDT [facility] ABS. BASOPHILS 0.05 0.00 - 0.20 x10'3/uL 05/16/2024 7:38 PM CDT [facility] ABS. IMMATURE GRANULOCYTES 0.03 0.00 - 0.03 x10'3/uL 05/16/2024 7:38 PM CDT [facility] 05/16/2024 3:25 PM CDT Sadaf Christensen DO LABORATORY Final Result Performing Organization Address City/[facility]/ZIP Co de Phone Number [facility] [address] [place] [address], [place] [phone] * (ABNORMAL) VITAMIN D, 25 OH (05/16/2024 3:25 PM CDT) VITAMIN D 25 HYDROXY TOTAL S/P/B 18.7(L) 30 - 100 NG/ML 05/17/2024 11:52 AM CDT [facility] Comment: DEFICIENT <20 INSUFFICIENT 20-30 SUFFICIENT 30-100 05/16/2024 3:25 PM CDT Sadaf Christensen DO LABORATORY Final Result Performing Organization Address [facility] Co de Phone Number [id number] [place] [address], [place] [phone] from Last 3 Months Insurance [employer] OPEN ACCESS [facility] Care Teams Tree Surgeon Relationship Specialty Start Date End Date Sadaf Christensen DO [address] [place] [address] PCP - General FAMILY PRACTICE 04/29/24
--- OUTSIDE RECORDS SUMMARY | 2024-05-22 17:02 | XMS_ITS | Clinical Summary ---
Author Organization [facility] Address [address] [place] [address] Care Team Providers Care Nail Expert Name Role Phone Unavailable Primary Care Provider Unavailabl e Source Comments [facility] [employer],non-owned Affiliates and Associated Physician Practices is amultiple site organization consisting of ambulatory clinics and hospital sitesin [place], [place], [place] and [place]. This disclosure is being madepursuant to the Care Everywhere program and may not contain all information available regarding this patient. Last updated 17.[facility] [employer] Social History Tobacco Use Types Packs/Day Years [...] VACCINE (1 - 2023-2 5 season) 2023 DEPRESSION SCREENING 02/14/2024 INFLUENZA VACCINE (Season Ended) 2024 ZOSTER VACCINE (1 of 2) 08/22/2049 HIB [...]
== END 2024-05-22 15:57 | disposition home or self-care (01) ==
LOC: ANHLAB 15:59
PROVIDERS: PCP Family Medicine; Referring Provider Surgery; Visit Provider Anesthesiology
DX: K81.1 Chronic cholecystitis (principal); Z01.818 Encounter for other preprocedural examination
CPT/HCPCS: 36415; 82150; 86850; 86900; 86901

== ENCOUNTER 2024-06-03 01:50 | Day surgery (SDC) | payer OTHER, SELFPAY ==
[2024-05-22 10:14] VITALS: BMI 40.6
--- NOTE | 2024-05-22 10:19 | PC.NURSE ---
Report to the Outpatient Waiting Room, entrance under the green pavilion located off [facility], at time _0815_ on date _[id number]_. Planned Procedure Time: _1015_.? Time changes happen often and if your time is changed the preop area will call you the afternoon before. - You and your visitor will be asked to self-screen and do not enter if you have any COVID symptoms. Please call surgeon if you need to reschedule. - A mask is optional within the hospital at this time. Patients may have clear liquids (water, carbonated beverages, clear teas, apple juice) until 3 hours prior to surgery with a maximum of 20 ounces. - No food from midnight until time of surgery and no smoking, or chewing tobacco (or any form of nicotine). No chewing gum, candy or mints. Take only the following medications with a SIP of water on the morning of surgery: ___Escitalopram____ DO NOT STOP ANY OF YOUR OTHER PRESCRIPTION MEDICATIONS PRIOR TO SURGERY EXCEPT THE FOLLOWING Hold all vitamins and supplements for 3 days per anesthesiologist. Medications to discontinue per physician Date to take last gtwg__[phone]___ Please no make-up, nail slovak, hairspray, perfume, deodorant, or body powder the day of surgery.? No jewelry (including any body piercings) or valuables the day of surgery, leave them at home.? Please take a shower or bath the night before, or the morning of, surgery with an antibacterial soap.? Wear comfortable, loose fitting clothing.? - Jewelry must be removed prior to entering the operating room.? Rings and piercings that are not removed may be cut off. - The hospital will not accept responsibility for valuables.? - Please leave all valuables, including medications, at home the day of surgery. If you are going home after surgery, a licensed jinriksha driver must drive you home.? - NO public transportation without another adult if you receive anesthesia. - We recommend that an adult stay with you for 24 hours following discharge. - We also recommend that you do not drive, make important decision, drink alcoholic beverages, or take any drugs that were not prescribed by your health care provider for at least 24 hours after your discharge time. Follow any additional instructions given to you from your surgeon. Telephone instructions given to _Epifanio___and asked if any additional questions and then verbalized understanding. Patient advised to call surgeon office or pre surgery nurse liaison [phone] if any additional questions.
[2024-05-29 14:23] VITALS: BMI 40.6
--- NOTE | 2024-05-29 14:45 | PC.NURSE ---
Report to the Outpatient Waiting Room, entrance under the green pavilion located off [facility], at time ___1100____ on date ___06/03/24____. Planned Procedure Time: ____1300____.? Time changes happen often and if your time is changed the preop area will call you the afternoon before. - You and your visitor will be asked to self-screen and do not enter if you have any COVID symptoms. Please call surgeon if you need to reschedule. - A mask is optional within the hospital at this time. Patients may have clear liquids (water, carbonated beverages, clear teas, apple juice) until 3 hours prior to surgery with a maximum of 20 ounces. - No food from midnight until time of surgery and no smoking, or chewing tobacco (or any form of nicotine). No chewing gum, candy or mints. Take only the following medications with a SIP of water on the morning of surgery: None____ DO NOT STOP ANY OF YOUR OTHER PRESCRIPTION MEDICATIONS PRIOR TO SURGERY EXCEPT THE FOLLOWING Hold all vitamins and supplements for 3 days per anesthesiologist. Please no make-up, nail cypriot, hairspray, perfume, deodorant, or body powder the day of surgery.? No jewelry (including any body piercings) or valuables the day of surgery, leave them at home.? Please take a shower or bath the night before, or the morning of, surgery with an antibacterial soap.? Wear comfortable, loose fitting clothing.? Children are encouraged to wear pajamas. - Jewelry must be removed prior to entering the operating room.? Rings and piercings that are not removed may be cut off. - The hospital will not accept responsibility for valuables.? - Please leave all valuables, including medications, at home the day of surgery. If you are going home after surgery, a licensed school bus driver must drive you home.? - NO public transportation without another adult if you receive anesthesia. - We recommend that an adult stay with you for 24 hours following discharge. - We also recommend that you do not drive, make important decision, drink alcoholic beverages, or take any drugs that were not prescribed by your health care provider for at least 24 hours after your discharge time. Follow any additional instructions given to you from your surgeon. Telephone instructions given to Kennedy and asked if any additional questions and then verbalized understanding. Patient advised to call surgeon office or pre surgery nurse liaison [phone] if any additional questions.
[2024-06-03] VITALS (9 sets, daily range): BP systolic 114–137; BP diastolic 73–98; PULSE 72–105; RESP 14–20; TEMP 36.2–36.8; O2SAT 91–100
--- OUTSIDE RECORDS SUMMARY | 2024-06-03 01:56 | XMS_ITS | Encounter Summary ---
Author Organization [facility] Address [address] [place] [address] Care Team Providers Care Mental Health Tech Name Role Phone , Generic Conversion Primary Care Provider Unavailable Anila Le MD Primary Care Provider [phone] None, Provider Primary Care Provider UnavailSuzan Taylor DO Primary Care Provider [phone] Sadaf Christensen DO Primary Care Provider [phone] Encounter Details Date Type Department Care Team (Late st Contact Info) Description 12/17/2016 [place] [address] Md Generic ConversionMD Social History Tobacco Use [...] Description 06/06/2024 3:40 PM CDT Office Visit [facility] [place] [address] [place], [place] [id number] Sadaf Christensen DO [address] [place] [address] documented as of this encounter Visit Diagnoses Not on filedocumented in this encounter Care Teams Mental Health Tech Relationship Specialty Start Date End Date Escobar Larson MD PCP - General 03/09/15 Anila Le MD PCP - General PEDIATRICS 11/28/18 01/13/21 None, Provider, PCP - General 01/14/21 02/02/22 Suzan Pena DO PCP - General FAMILY PRACTICE 02/03/22 04/28/24 Sadaf Christensen DO [address] [facility] [address] [place] [address] PCP - General FAMILY PRACTICE 04/29/24 documented as of this encounter
--- OUTSIDE RECORDS SUMMARY | 2024-06-03 01:56 | XMS_ITS | Clinical Summary ---
Author Organization [facility] Address [address] [place] [address] Care Team Providers Care Factorer Name Role Phone Mariann Christensenh Thalia HASKINS Primary Care Provider [phone] Allergies Active Allergy Reactions Criticality Noted Date [...] reports she went to emergency department at [facility] 04/30/2024 for abdominal pain. She reports abdominal [...] MRCP. Requested records from ED visit at [place]. Cervical cancer screening 05/16/2024 Overview (05/16/2024): Initial visit 05/16/2024: She reports she had Pap in [address] Suzan Pena through [facility]. Assessment & Plan (05/16/2024 3:27 PM CDT): [...] She is agreeable and will complete through [facility]. Generalized anxiety disorder 05/16/2024 Overview (05/16/2024): Initial [...] Encounters Date Type Department Care Team Description 05/23/2024 MyChart Message Enc [facility] Medical [facility] [place] [address] [place] [address] Sadaf Christensen, Gallbladder surgery 05/16/2024 2:20 PM CDT Office Visit [facility] [place] [address] [place] [address] Sadaf Christensen DO New Patient (Pt states she is having ABD issues and sees a general surgeon the 8th at [facility]. /But wanted to get a PCP to see if there were any other recommendations pt states she has been on a low fat diet for 4 weeks. /) 05/16/2024 Travel from Last 3 Months Immunizations Immunization Administration Dates Next Due Dtap (Acel-Immune) 11/16/2004, [...] Description 06/06/2024 3:40 PM CDT Office Visit [facility] [place] [address] [place] [address] Sadaf Christensen, DO [address] [place] [address] Health Maintenance Due Date Last Done Comments Cervical Cancer Screening Pap Smear (Age 21 to 29) Every 3 Years 1999 Cervical Cancer Screening 1999 Annual Physical 08/22/2002 Chlamydia Screening Females ages 16-24 2015 Hepatitis C 08/22/2017 Pneumococcal Vaccine: Pediatrics (0 to 5 Years) and At-Risk Patients (6 to 49 Years) (1 of 2 - PCV) 08/22/2018 11/23/2000, 03/21/2000, 1999, Additional history exists COVID-19 Vaccine ( - season) 2025 03/15/2020, 02/23/2020 Postponed from 10/15/2023 (Patient Refused) DTaP, Tdap and Td Vaccines (8 - Td or Tdap) 05/16/2034 05/16/2024, 09/27/2010, 11/16/2004, Additional history exists Hepatitis B Vaccines Completed 05/30/2000, 1999, 1999 HPV Vaccines Completed 06/03/2011, 12/14, 09/27/2010 Meningococcal Vaccine Completed 08/24/2015, 011 PHQ-2 (Physician Bee) Completed 05/16/2024 Meningococcal B Vaccine Aged Out [...] to 44.9 in adult, unspecified obesity type COMPREHENSIVE METABOLIC PANEL Routine 05/16/2024 3:25 PM CDT Class 3 severe obesity without serious comorbidity with body mass index (BMI) of 40.0 to 44.9 in adult, unspecified obesity type LIPID PANEL Routine 05/16/2024 3:25 PM CDT Class 3 severe obesity without serious comorbidity with body mass index (BMI) of 40.0 to 44.9 in adult, unspecified obesity type VITAMIN D, 25 OH Routine 05/16/2024 3:25 PM CDT Class 3 severe obesity without serious comorbidity with body mass index (BMI) of 40.0 to 44.9 in adult, unspecified obesity type TSH W/REFLEX Routine 05/16/2024 3:25 PM CDT Class 3 severe obesity without serious comorbidity with body mass index (BMI) of 40.0 to 44.9 in adult, unspecified obesity type HEMOGLOBIN, GLYCOSYLATED Routine 05/16/2024 3:25 PM CDT Class 3 severe obesity without serious comorbidity with body mass index (BMI) of 40.0 to 44.9 in adult, unspecified obesity type URINALYSIS, AUTO, COMPLETE Routine 05/16/2024 3:25 PM CDT Class 3 severe obesity without serious comorbidity with body mass index (BMI) of 40.0 to 44.9 in adult, unspecified obesity type from Last 3 Months Results * TSH W/REFLEX (05/16/2024 3:25 PM CDT) TSH 1.330 0.358 - 3.740 uIU/ML 05/17/2024 11:52 AM CDT [facility] 05/16/2024 3:25 PM CDT Sadaf M Fermin HASKINS LABORATORY Final Result Performing Organization Address [facility] Co de Phone Number [facility]ITALRTHUBandar [place] [address] [place] [address], [place] [phone] * (ABNORMAL) HEMOGLOBIN, GLYCOSYLATED (05/16/2024 3:25 PM CDT) HGB A1C 5.4 4.5 - 6.2 % 05/17/2024 9:51 AM CDT [facility] ESTIMATED AVG GLUCOSE 108(H) 74 - 106 MG/DL 05/17/2024 9:51 AM CDT [facility] 05/16/2024 3:25 PM CDT Sadaf Christensen DO LABORATORY Final Result Performing Organization Address [facility] Co de Phone Number [facility]ITALRTHURALEJANDRO VIL[place] [address] [place] [address], [place] [phone] * (ABNORMAL) URINALYSIS (05/16/2024 3:25 PM CDT) COLOR (U) YELLOW 05/16/2024 7:42 PM CDT [facility] TRANSPARENCY CLEAR CLEAR 05/16/2024 7:42 PM CDT [facility] SPECIFIC GRAVITY (U) 1.020 1.003 - 1.040 05/16/2024 7:42 PM CDT [facility] U PH 6.0 5.0 - 9.0 05/16/2024 7:42 PM CDT [facility] PROTEIN RANDOM (U) NEGATIVE NEGATIVE 05/16/2024 7:42 PM CDT [facility] GLUCOSE (U) NEGATIVE NEGATIVE 05/16/2024 7:42 PM CDT [facility] KETONES MG/DL (U) NEGATIVE NEGATIVE 05/16/2024 7:42 PM CDT [facility] BILIRUBIN (U) NEGATIVE NEGATIVE 05/16/2024 7:42 PM CDT [facility] BLOOD (U) NEGATIVE NEGATIVE 05/16/2024 7:42 PM CDT [facility] UROBILINOGEN 0.2 0.0 - 2.0 EU/DL 05/16/2024 7:42 PM CDT [facility] NITRITES NEGATIVE NEGATIVE 05/16/2024 7:42 PM CDT [facility] LEUKOCYTES (U) NEGATIVE NEGATIVE 05/16/2024 7:42 PM CDT [facility] RBC/HPF 0-3 0 - 3 /HPF 05/16/2024 7:42 PM CDT [facility] WBC/HPF 0-3 0 - 3 /HPF 05/16/2024 7:42 PM CDT [facility] EPI/HPF 0-3 /HPF 05/16/2024 7:42 PM CDT [facility] BACTERIA (U) TRACE(A) NONE SEEN 05/16/2024 7:42 PM CDT [facility] MUCUS FEW 05/16/2024 7:42 PM CDT [facility] URINE SPECIMEN FROM [facility] / Unknown 05/16/2024 3:25 PM CDT us Sadaf Christensen DO URINE ORDERABLES Final Result [facility] [address] [place] [address], [place] [phone] * COMPREHENSIVE METABOLIC PANEL (05/16/2024 3:25 PM CDT) SODIUM S/P/B 138 136 - 145 MMOL/L 05/17/2024 11:52 AM CDT [facility] POTASSIUM S/P/B 4.1 3.5 - 5.1 MMOL/L 05/17/2024 11:52 AM CDT [facility] CHLORIDE S/P/B 102 98 - 107 MMOL/L 05/17/2024 11:52 AM CDT [facility] CO2 28.3 21 - 32 MMOL/L 05/17/2024 11:52 AM CDT [facility] GLUCOSE 87 70 - 99 MG/DL 05/17/2024 11:52 AM CDT [facility] BUN 8 7 - 18 MG/DL 05/17/2024 11:52 AM CDT [facility] CREATININE S/P/B 0.68 0.55 - 1.02 MG/DL 05/17/2024 11:52 AM CDT [facility] CALCIUM S/P/B 9.3 8.4 - 10.5 MG/DL 05/17/2024 11:52 AM CDT [facility] BILIRUBIN TOTAL S/P/B 0.2 0.2 - 1.0 MG/DL 05/17/2024 11:52 AM CDT [facility] ALKALINE PHOSPHATASE S/P/B 76 37 - 98 U/L 05/17/2024 11:52 AM CDT [facility] AST 26 15 - 37 U/L 05/17/2024 11:52 AM CDT [facility] ALT 48 14 - 59 U/L 05/17/2024 11:52 AM CDT [facility] TOTAL PROTEIN S/P/B 8.1 6.4 - 8.2 G/DL 05/17/2024 11:52 AM CDT [facility] ALBUMIN S/P/B 4.3 3.4 - 5.0 G/DL 05/17/2024 11:52 AM CDT [facility] ANION GAP 7.7 5 - 15 MMOL/L 05/17/2024 11:52 AM CDT [facility] Comment:REFERENCE RANGE NOT ESTABLISHED OSMOLALITY (CALC) 284 MOSM/KG 025 11:52 AM CDT [facility] Comment:REFERENCE RANGE NOT ESTABLISHED GFR ESTIMATE >90 >90 ML/MIN/1. 73 M2 05/17/2024 11:52 AM CDT [facility] GFR NOTES GFR REFERENCE S: 05/17/2024 11:52 AM T [facility] Comment: THE ESTIMATED GFR IS CALCULATED [...] CDT Sadaf Christensen DO LABORATORY Final Result [facility] [address] [place] [address], * (ABNORMAL) LIPID PANEL (05/16/2024 3:25 PM CDT) CHOLESTEROL 144 <200 MG/DL 05/17/2024 11:52 AM CDT [facility] TRIGLYCERIDES 97 <150 MG/DL 05/17/2024 11:52 AM CDT [facility] HDL 34(L) >40 MG/DL 05/17/2024 11:52 AM CDT [facility] LDL-C 91 <100 MG/DL 05/17/2024 11:52 AM CDT [facility] VLDL CALCULATION 19 5 - 28 MG/DL 05/17/2024 11:52 AM CDT [facility] CHOL/HDL RATIO 4.2(H) 0.0 - 4.0 05/17/2024 11:52 AM CDT [facility] LDL/HDL 2.7(H) 0.41 - 2.13 05/17/2024 11:52 AM CDT [facility] NON HDL CHOLESTEROL 110 <140 MG/DL 05/17/2024 11:52 AM CDT [facility] 05/16/2024 3:25 PM CDT Sadaf Christensen DO LABORATORY Final Result [facility] [address] [place] [address], * (ABNORMAL) CBC W/DIFF AUTOMATED (05/16/2024 3:25 PM CDT) WBC 9.20 4.00 - 10.80 x10'3/uL 05/16/2024 7:38 PM CDT [facility] RBC 4.57 4.10 - 5.40 x10'6/uL 05/16/2024 7:38 PM CDT [facility] HGB 13.6 12.0 - 16.0 G/DL 05/16/2024 7:38 PM CDT [facility] HCT 41.2 36.0 - 47.0 % 05/16/2024 7:38 PM CDT [facility] MCV 90.2 78.0 - 100.0 FL 05/16/2024 7:38 PM CDT [facility] MCH 29.8 27.0 - 31.0 PG 05/16/2024 7:38 [facility] MCHC 33.0 33.0 - 36.0 G/DL 05/16/2024 7:38 PM CDT [facility] RDW 12.3 11.5 - 14.5 % 05/16/2024 7:38 PM CDT [facility] PLT 411(H) 150 - 350 x10'3/uL 05/16/2024 7:38 PM CDT [facility] MPV 10.5(H) 7.4 - 10.4 FL 05/16/2024 7:38 PM CDT [facility] DIFFERENTIAL TYPE AUTOMATED DIFFERENTIAL 05/16/2024 7:38 PM CDT [facility] NEUTROPHILS % 62.2 % 05/16/2024 7:38 PM CDT [facility] LYMPHOCYTES % 28.9 % 05/16/2024 7:38 PM CDT [facility] MONOCYTES % 6.5 % 05/16/2024 7:38 PM CDT [facility] EOSINOPHILS % 1.6 % 05/16/2024 7:38 PM CDT [facility] BASOPHILS % 0.5 % 05/16/2024 7:38 PM CDT [facility] IMMATURE GRANS % 0.3 % 05/16/2024 7:38 PM CDT [facility] ABS. NEUTROPHILS 5.71 1.60 - 8.30 x10'3/uL 05/16/2024 7:38 PM CDT [facility] ABS. LYMPHOCYTES 2.66 0.80 - 4.70 x10'3/uL 05/16/2024 7:38 PM CDT [facility] ABS. MONOCYTES 0.60 0.00 - 1.50 x10'3/uL 05/16/2024 7:38 PM CDT [facility] ABS. EOSINOPHILS 0.15 0.00 - 0.40 x10'3/uL 05/16/2024 7:38 PM CDT [facility] ABS. BASOPHILS 0.05 0.00 - 0.20 x10'3/uL 05/16/2024 7:38 PM CDT [facility] ABS. IMMATURE GRANULOCYTES 0.03 0.00 - 0.03 x10'3/uL 05/16/2024 7:38 PM CDT [facility] 05/16/2024 3:25 PM CDT Sadaf Thalia Christensen DO LABORATORY Final Result Performing Organization Address City/[facility]/ZIP Co de Phone Number [address] [address], [place] [phone] * (ABNORMAL) VITAMIN D, 25 OH (05/16/2024 3:25 PM CDT) VITAMIN D 25 HYDROXY TOTAL S/P/B 18.7(L) 30 - 100 NG/ML 05/17/2024 11:52 AM CDT [facility] Comment: DEFICIENT <20 INSUFFICIENT 20-30 SUFFICIENT 30-100 05/16/2024 3:25 PM CDT Sadaf Christensen DO LABORATORY Final Result Performing Organization Address City/[facility]/ZIP Co de Phone Number [address] [address], [place] [phone] from Last 3 Months Insurance [employer] [facility] Care Teams Factorer Relationship Specialty Start Date End Date Sadaf Christensen DO [address] [facility] [address] [place] [address] PCP - General FAMILY PRACTICE 04/29/24
--- OUTSIDE RECORDS SUMMARY | 2024-06-03 01:56 | XMS_ITS | Clinical Summary ---
Author Organization [facility] Address [address] [place] [address] Care Team Providers Care Office Helper Name Role Phone Unavailable Primary Care Provider Unavailabl e Source Comments [facility] [employer],non-owned Affiliates and Associated Physician Practices is amultiple site organization consisting of ambulatory clinics and hospital sitesin [place], [place], [place] and [place]. This disclosure is being madepursuant to the Care Everywhere program and may not contain all information available regarding this patient. Last updated 17.[facility] [employer] Social History Tobacco Use Types Packs/Day Years Used Date Smoking Tobacco: Never Assessed Comments Unknown Sex and Gender Information Value Date Recorded Sex Assigned at Not on file Legal Sex Female 5:41 AM EVALUATION ANALYST Gender Identity Not on file Sexual Orientation Not on file Plan of Treatment Health Maintenance Due Date Last Done Comments PAP SMEAR 1999 HIV SCREENING 08/22/2014 HPV VACCINE (1 - 3-dose series) 08/22/2014 CHLAMYDIA/GONORRHEA SCREENING 2015 HEPATITIS C SCREENING 08/18/2017 DTAP/TDAP/TD VACCINES (1 - Tdap) 08/22/2018 HEPATITIS B VACCINE (1 of 3 - 19+ 3-dose series) 08/22/2018 COVID-19 VACCINE ( - 2023-2 5 season) 2023 DEPRESSION SCREENING [...] patient's age to complete this topic Insurance [facility]
--- OUTSIDE RECORDS SUMMARY | 2024-06-03 01:56 | XMS_ITS | Encounter Summary ---
Author Organization [facility] Address [address] [place] [address] Care Team Providers Care Medical Instructor Name Role Phone Sadaf Christensen DO Primary Care Provider [phone] Encounter Details Date Type Department Care Team (Latest Contact Info) Description 05/23/2024 [facility] [place] [address] [facility] [address] [place] [address] Sadaf Christensen DO [address] [place], [place] [id number] Gallbladder surgery Social History Tobacco Use Types Packs/Day Years Used Date Smoking Tobacco: Never Smokeless Tobacco: Never Alcohol Use Standard Drinks/Week Comments Not Currently [...] Description 06/06/2024 3:40 PM CDT [facility] [place] [address] [place] [address] Sadaf Christensen DO [address] [place], [place] [id number] documented as of this encounter Visit Diagnoses Not on filedocumented in this encounter Additional Health Concerns Assessment Noted Time PHQ-9 Depression Total Score: 3 05/17/19 25 2:25 PM CDT documented as of this encounter Care Teams Medical Instructor Relationship Specialty Start Date End Date Sadaf Christensen DO [address] [facility] [address] [place] [address] PCP - General FAMILY PRACTICE 04/29/24 documented as of this encounter
[2024-06-03] MEDS: LACTATED RINGERS 1,000 ML 30 ML IV CONT ×2 (11:30→14:47)
--- NOTE | 2024-06-03 12:08 | WPDHPUPDATE1 ---
History and Physical Update Update Date/Time: 06/03/24 12:08 History and Physical has been reviewed, including an updated exam of the patient. There are NO changes in the patient's condition. Risks, benefits, and alternatives have been discussed and questions answered. Patient agrees to proceed with procedure.
[2024-06-03] MEDS: ACETAMINOPHEN 500 MG TABLET 1000 MG PO (12:42)
[2024-06-03] MEDS: KETOROLAC 15 MG/ML VIAL (*BKC) IV PUSH (12:43)
[2024-06-03 12:51] LABS: BEDSIDEPREGUCG Negative (Negative)
[2024-06-03] MEDS: SCOPOLAMINE 1 MG PATCH 1 PATCH TRANSDERM (13:20)
--- NOTE | 2024-06-03 13:24 | WPDANESEPPF ---
Anes - Initial Pre Proc Eval Procedure: Operation Date: 06/03/24 13:00 Proposed Procedures p Laparoscopic Cholecystectomy - Jade Prater MD Date/Time: 06/03/24 13:24 Surgeon: Jade Prater MD Pre Op Diagnosis: chronic cholecystitis Patient Data Age: 23 Gender: F Height: 1.63 m Weight: 101.9 kg Last Vital Signs Temp 36.8 C 06/03/24 11:30 Pulse 105 H 06/03/24 11:30 Resp 16 06/03/24 11:30 BP 137/98 H 06/03/24 11:30 Pulse Ox 100 06/03/24 11:30 O2 Del Method Room Air 06/03/24 11:30 Allergies Allergy/AdvReac Type Severity Reaction Status Date / Time Penicillins Allergy Hives Verified 06/03/24 12:37 sulfamethoxazole (From Allergy Hives Verified 06/03/24 12:37 Sulfamethoxazole-Trimethoprim) trimethoprim (From Allergy Hives Verified 06/03/24 12:37 Sulfamethoxazole-Trimethoprim) Home Medications ?Medication ?Instructions ?Recorded ?Confirmed ?Type spironolactone 100 mg tablet 100 mg PO DAILY 05/16/24 06/03/24 History ergocalciferol (vitamin D2) 1,000 1,000 mcg PO DAILY 05/22/24 06/03/24 History unit capsule escitalopram oxalate 10 mg tablet 10 mg PO DAILY 05/22/24 05/29/24 History famotidine 20 mg tablet (Acid 20 mg PO DAILY 05/22/24 06/03/24 History Controller) Laboratory Tests 06/03/24 11:30 POC Urine HCG, Qual Negative (Negative) Patient hx anesthesia problems: none Family hx anesthesia problems: none Results Review: All pre-operative results and documents have been reviewed as part of the pre-operative evaluation. [facility] Past Medical History Medical History (Updated 06/03/24 @ 13:25 by Magda Dailey CRNA) GERD (gastroesophageal reflux disease) Morbid obesity Marijuana smoker Anxiety Asthma Family History Family History Father Alcohol abuse Cancer Diabetes mellitus Mother Asthma Cancer Depression Anxiety Hypertension Thyroid disease Cerebrovascular accident Social History Social History Smoking status: Never smoker Alcohol intake: never Substance use: current Substance use type: marijuana Other substance usage details: Marijuana at night Do You Feel Safe in your Home?: Yes Lack of Transportation: No Lack of Food: Never True Current Housing: I Have Housing Concerned About Future Housing: No Difficulty Paying Gas/Electric Bills: No Difficulty Paying for Meds: No Currently Unemployed: No Education: High School Diploma/GED Difficulty w/ Childcare or Family Care: No Living arrangements: with family Occupation/Education: occupation Gender identity (if verbalized by the patient): Female Spiritual care concerns: No Anes - Eval Final PreProcedure Day of Procedure 06/03/24 13:24 Patient weight: morbidly obese Heart: regular rate and rhythm Lungs: clear to auscultation Airway: Mallampati scale class II Last oral intake: >/= 8 hours ASA classification: III Emergent: no Anesthetic plan: proceed Anesthesia type and monitoring: general ETT and standard monitoring Results Review: All pre-operative results and documents have been reviewed as part of the pre-operative evaluation. Informed Consent: The patient's anesthetic plan and its attendant risks and benefits were discussed with the patient/family/POA. Questions were solicited and answers provided to the satisfaction of the patient/family/POA.
[2024-06-03] MEDS: ceFAZolin 2 GM/D5W 50 ML 2 GM/50 ML BAG IVPB (13:34)
[2024-06-03] MEDS: BUPIVACAINE/EPINEPHRINE 0.5% 50 ML VIAL 30 ML INFILTRATE (14:06)
--- NOTE | 2024-06-03 14:39 | W.PM.PROC2 ---
Procedure Note - Detailed Date of Procedure 06/03/24 Pre-op Diagnosis chronic cholecystitis Post-op Diagnosis Same Procedure Performed Laparoscopic cholecystectomy Surgeon Jade Prater MD Anesthesia General Indications 23-year-old female presented to the office complaining of postprandial right upper quadrant abdominal pain associated with nausea and vomiting. Workup including imaging significant for chronic cholecystitis. Findings moderate chronic cholecystitis Description of Procedure The patient was taken to the operating room placed in the supine position. After adequate induction of general anesthesia, the patient was prepped and draped in normal sterile fashion. A time-out was then performed to verify the patient's identity as well as the procedure being performed. I then made a 5 mm incision in the infraumbilical region. Through this, a Veress needle was placed into the peritoneal cavity and CO2 gas was then insufflated. After adequate pneumoperitoneum was achieved, the Veress needle was removed and a 5 mm optiview trocar was placed through this incision under direct visualization. I then placed the laparoscope through this trocar site and under direct visualization placed a further 12 mm subxiphoid port as well as 2 additional 5 mm ports in the right upper abdomen. The gallbladder was then identified and was noted to be moderately inflamed, distended. I was able to place a grasper at the dome of the gallbladder and this was retracted anterior and cephalad up over the liver. A 2nd retractor was then placed at the infundibulum and retracted laterally, this allowed visualization of the triangle of Calot. I then was able to visualize the cystic duct in its entirety from its proximal insertion into the gallbladder, to its distal junction with the common hepatic/common bile duct junction. At this point, I carefully skeletonized the proximal cystic duct with the [place] dissector. I then clipped and transected the proximal cystic duct. Next I visualized the cystic artery. Again the artery was skeletonized, clipped, and transected. I then used the Bovie cautery to take down the peritoneal attachments of the gallbladder off the liver bed. This was somewhat difficult given the amount of inflammation in the posterior space. Once the gallbladder specimen was completely detached, an endo-pouch was placed through the 12 mm port site. I then placed the gallbladder specimen into the Endo pouch and removed the endo-pouch from the 12 mm port site. The specimen will now be sent to pathology for further review. I then copiously irrigated the right upper quadrant. Some mild oozing was noted in the liver bed and this was controlled with the bovie cautery. Hemostasis was noted in the liver bed, the clips were noted to be in good position on both the cystic duct stump and the cystic artery stump. No other pathology was noted in the right upper quadrant. I then moved the laparoscope to the subxiphoid port. No iatrogenic injury or other pathology was noted in the lower abdomen. I then closed the 12 mm trocar site under direct visualization using the Sukumar cone and 0 Vicryl suture. At this point, the abdomen was desufflated and all ports removed. All port sites were then closed with 4.O Monocryl subcuticular sutures. Dermabond was placed on each incision. The patient tolerated the procedure well, was extubated in the operating room postoperative and will be transferred to the recovery room in stable condition Estimated Blood Loss 10 Drains No Packing No Pathology Yes Complications No immediate complications Condition Stable Disposition PACU [facility] Billing Surgery - Charge Forward: Surgery Billing
[2024-06-03] MEDS: fentaNYL CITRATE INJ (*CRX) 100 MCG/2 ML VIAL 25 MCG IV PUSH ×2 (15:13→15:15)
[2024-06-03] MEDS: ONDANSETRON INJ 4 MG/2 ML VIAL IV PUSH (15:50)
[2024-06-03] MEDS: diphenhydrAMINE HCl CAP 25 MG CAPSULE PO (17:17)
--- NOTE | 2024-06-03 17:18 | SUR.PHASEII ---
1710 pt feeling very nauseous while attempting to get dressed. called Anesthesia for PO benadryl. Order received. awaiting for pharmacy to send up medication.
[2024-06-03] MEDS: oxyCODONE HCL (*CRX) 5 MG TAB IR PO (17:28)
--- NOTE | 2024-06-03 17:31 | SUR.PHASEII ---
1725 pt also wanting pain pill. Will give pain pill and monitor pt for a while with PO benadryl and pain pill on board.
== END 2024-06-03 17:43 | disposition home or self-care (01) ==
PROVIDERS: PCP Family Medicine; Visit Provider Surgery
PROC: 0FT44ZZ Resection of Gallbladder, Percutaneous Endoscopic Approach (ICD-10-PCS; CPT 47562; principal; 2024-06-03 13:00)
DX: K82.4 Cholesterolosis of gallbladder (principal); E66.01 Morbid (severe) obesity due to excess calories; Z68.38 Body mass index [BMI] 38.0-38.9, adult
CPT/HCPCS: 47562; 88304; A9270; J0690; J1100; J1885; J2250; J2405; J2704; J3010; J7030; J7120

== ENCOUNTER 2024-06-18 11:25 | Emergency (ER) | payer OTHER, SELFPAY ==
--- NOTE | ~2024-06-18 | XR_ITS ---
XR chest 2V Ordering provider: Fermin Blackwood MD History: 23 years Female with . dizziness, elevated BP, head pressure . Comparison: None. FINDINGS: MEDIASTINUM: The cardiac silhouette is not enlarged. LUNGS: No infiltrates, effusions or pneumothorax. OTHER: No free air under the diaphragm. IMPRESSION: No acute cardiopulmonary pathology. Reviewed, dictated and finalized at location A.
[2024-06-18 11:27] VITALS: BP 150/105; PULSE 103; RESP 18; TEMP 36.4; O2SAT 100
--- NOTE | 2024-06-18 12:12 | ECG_ITS ---
Test Date: 2024-06-18 12:26:59 Measurements Intervals [place] Rate: 75 P: 33 DE: 138 QRS: 30 QRSD: 80 T: 14 QT: 361 QTc: 404 Interpretive Statements SINUS RHYTHM NONSPECIFIC T WAVE ABNORMALITY No previous ECG available for comparison Electronically Signed On 06-18-2024 14:35:42 CDT by Gallo Cain M.D.
--- OUTSIDE RECORDS SUMMARY | 2024-06-18 12:15 | XMS_ITS | Encounter Summary ---
Author Organization [facility] Address [address] [place] [address] Care Team Providers Care Filtrose Crusher Name Role Phone Sadaf Christensen DO Primary Care Provider [phone] Encounter Details Date Type Department Care Team (Latest Contact Info) Description 06/17/2024 Results Follow-Up [place] [address] [facility] [address] [place] [address] Sadaf Christensen DO [address] [facility] [address] [place] [address] HELICOBACTER PYLORI, STOOL, EIA, URINALYSIS, HEMOGLOBIN, GLYCOSYLATED, Additional followed-up results: 5 Social History Tobacco Use Types Packs/Day Years [...] Care Team (Late st Contact Info) Description 06/21/2024 2:40 PM CDT [facility] [place] [address] [facility] [address] [place] [address] Sadaf Christensen DO [address] [place] [address] documented as of this encounter Visit Diagnoses Not on filedocumented in this encounter Additional Health Concerns Assessment Noted Time PHQ-9 Depression Total Score: 3 05/17/19 25 2:25 PM CDT documented as of this encounter Care Teams Filtrose Crusher Relationship Specialty Start Date End Date Sadaf Christensen DO [address] [place] [address] PCP - General FAMILY PRACTICE 04/29/24 documented as of this encounter
--- OUTSIDE RECORDS SUMMARY | 2024-06-18 12:15 | XMS_ITS | Encounter Summary ---
Author Organization [facility] Address [address] [place] [address] Care Team Providers Care Furniture Mover Helper Name Role Phone , Generic Conversion Primary Care Provider Unavailable Anila Le MD Primary Care Provider [phone] None, Provider Primary Care Provider UnavailSuzan Taylor DO Primary Care Provider [phone] Sadaf Christensen DO Primary Care Provider [phone] Encounter Details Date Type Department Care Team (Late st Contact Info) Description 12/17/2016 [place] [address] , Generic ConversionMD Social History Tobacco Use Types [...] Description 06/21/2024 2:40 PM CDT Office Visit [facility] [place] [address] [place], [place] [id number] Sadaf Christensen DO [address] [place] [address] documented as of this encounter Visit Diagnoses Not on filedocumented in this encounter Care Teams Furniture Mover Helper Relationship Specialty Start Date End Date Escobar Larson MD PCP - General 03/09/15 Anila Le MD PCP - General PEDIATRICS 11/28/18 01/13/21 None, Provider, PCP - General 01/14/21 02/02/22 Suzan Pena DO PCP - General FAMILY PRACTICE 02/03/22 04/28/24 Sadaf Christensen DO [address] [place] [address] PCP - General FAMILY PRACTICE 04/29/24 documented as of this encounter
--- OUTSIDE RECORDS SUMMARY | 2024-06-18 12:15 | XMS_ITS | Clinical Summary ---
Author Organization [facility] Address [address] [facility] [place] [address] Care Team Providers Care Skein Drier Name Role Phone Unavailable Primary Care Provider Unavailabl e Source Comments [facility] [employer],non-owned Affiliates and Associated Physician Practices is amultiple site organization consisting of ambulatory clinics and hospital sitesin [place], [place], [place] and [place]. This disclosure is being madepursuant to the Care Everywhere program and may not contain all information available regarding this patient. Last updated 17.[facility] [employer] Social History Tobacco Use Types Packs/Day Years Used Date Smoking Tobacco: Never Assessed Comments Unknown Sex and Gender Information Value Date Recorded Sex Assigned at Not on file Legal Sex Female 5:41 AM BACK PANEL PADDER Gender Identity Not on file Sexual Orientation [...] patient's age to complete this topic Insurance [employer] SELF PAY NO INSURANCE Member Subscriber Plan / Payer (Ef fective for All Dates) Name:Oscar Reva Kilo Member ID:Not on file Relation to Subscriber:Not on file Name:REVA ACOSTA Subscriber ID:Not on file (Home) Address: [address] [place] [id number] Payer ID:Not on file Group ID:Not on file Type:Self Pay Address: [place], [place]
--- OUTSIDE RECORDS SUMMARY | 2024-06-18 12:15 | XMS_ITS | Encounter Summary ---
Author Organization [facility] Address [address] [place] [address] Care Team Providers Care Ton Container Shipper Name Role Phone Sadaf Christensen DO Primary Care Provider [phone] Encounter Details Date Type Department Care Team (Latest Contact Info) Description 05/23/2024 [facility] [place] [address] [facility] [address] [place] [address] Sadaf Christensen DO [address] [place], [place] [id number] Gallbladder surgery Social History Tobacco Use Types [...] Description 06/21/2024 2:40 PM CDT [facility] [address] [place] [address] Sadaf Christensen DO [address] [place], [place] [id number] documented as of this encounter Visit Diagnoses Not on filedocumented in this encounter Additional Health Concerns Assessment Noted Time PHQ-9 Depression Total Score: 3 05/17/19 25 2:25 PM CDT documented as of this encounter Care Teams Ton Container Shipper Relationship Specialty Start Date End Date Sadaf Christensen DO [address] [place] [address] PCP - General FAMILY PRACTICE 04/29/24 documented as of this encounter
--- OUTSIDE RECORDS SUMMARY | 2024-06-18 12:15 | XMS_ITS | Encounter Summary ---
Author Organization [facility] Address [address] [place] [address] Care Team Providers Care Manager Risk Name Role Phone Sadaf Christensen DO Primary Care Provider Encounter Details Date Type Department Care Team (Latest Contact Info) Description 06/15/2024 MyChart Message Enc [facility] [address] [place], [place] [id number] Sadaf Christensen DO [address] [place], [place] [id number] Lexapro question Social History Tobacco Use Types Packs/Day Years [...] Description 06/21/2024 2:40 PM CDT Office Visit [facility] [address] [place] [address] Sadaf Christensen DO [address] [place] [address] documented as of this encounter Visit Diagnoses Not on filedocumented in this encounter Additional Health Concerns Assessment Noted Time PHQ-9 Depression Total Score: 3 05/17/19 25 2:25 PM CDT documented as of this encounter Care Teams Manager Risk Relationship Specialty Start Date End Date Sadaf Christensen DO [address] [facility] [address] [place] [address] PCP - General FAMILY PRACTICE 04/29/24 documented as of this encounter
--- OUTSIDE RECORDS SUMMARY | 2024-06-18 12:15 | XMS_ITS | Clinical Summary ---
Author Organization [facility] Address [address] [place] [address] Care Team Providers Care Manufacturing Support Engineer Name Role Phone FerminSadaf Primary Care Provider [phone] Allergies Active Allergy Reactions Criticality Noted Date Comments Penicillin V Unknown 01/14/2021 From childhood Sulfa Antibiotics Unknown 11/28/2018 From childhood Medications spironolactone (ALDACTONE) 100 MG tablet Take 1 tablet (100 mg total) by mouth daily. 08/03/2023 Active clindamycin (CLEOCIN) 75 MG/5ML solution Take by mouth 3 (three) times daily. Active escitalopram (LEXAPRO) 10 MG tabletIndication s:Generalized anxiety disorder Take 1 tablet (10 mg total) by mouth daily. 90 tablet 05/17/2024 Active Active Problems Problem Noted Date Diagnosed Date Pain of upper abdomen 05/16/2024 Overview (05/16/2024): Initial visit 05/16/2024: She reports she went to emergency department at [facility] 04/30/2024 for abdominal pain. She reports abdominal pain started out with just eating food however last Richy she was having a weird burning sensation [...] MRCP. Requested records from ED visit at [facility]. Cervical cancer screening 05/16/2024 Overview (05/16/2024): Initial visit 05/16/2024: She reports she had Pap in [address] Suzan Pena through [facility]. Assessment & Plan (05/16/2024 3:27 PM [...] She is agreeable and will complete through [employer]. Generalized anxiety disorder 05/16/2024 Overview (05/16/2024): Initial [...] Encounters Date Type Department Care Team Description 06/18/2024 MyChart Message Enc [facility] Multispecialty Care [facility] [address] [facility] [address] [place] [address] Sadaf Christensen, Blood pressure 06/17/2024 Results Follow-Up [facility] [place] [address] [facility] [facility] [address] [place] [address] Sadaf Christensen, HELICOBACTER PYLORI, STOOL, EIA, URINALYSIS, HEMOGLOBIN, GLYCOSYLATED, Additional followed-up results: 5 06/15/2024 MobileMDhart Message Enc [facility] [place] [address] [facility] [address] [place] [address] Sadaf Christensen, Lexapro question 06/03/2024 Scan [employer] HEALTH INFO SRVCS Scanned, Doc Med [facility] Procedure (SCAN) 05/23/2024 UnLtdWorldt Message Enc [facility] [place] [address] [facility] [address] [place] [address] Sadaf Christensen, Gallbladder surgery 05/16/2024 2:20 PM CDT Office Visit [facility] [place] [address] [place] [address] Sadaf Christensen, New Patient (Pt states she is having ABD issues and sees a general surgeon [facility]. /But wanted to get a PCP to [...] Description 06/21/2024 2:40 PM CDT Office Visit [facility] Multispecialty Care - [place] [address] [place] [address] Sadaf Christensen, [address] [place] [address] Health Maintenance Due Date Last Done Comments [...] Meningococcal Vaccine Completed 08/24/2015, 011 PHQ-2 ([facility]) Completed 05/16/2024 Meningococcal B Vaccine Aged Out No l onger eligible based on patient's age to complete this topic RSV Immunizations Under 20 Months Aged Out No longer eligible based on patient's age to complete this topic Procedures Procedure Name Priority Date/Time Associated Diagnosis Comments HELICOBACTER PYLORI, STOOL, EIA Routine 06/15/2024 12:00 AM CDT Dyspepsia PROCEDURE GENERIC (SCAN ORDER) 06/03/2024 CBC W/DIFF AUTOMATED Routine 05/16/2024 3:25 PM [...] type from Last 3 Months Results * HELICOBACTER PYLORI, STOOL, EIA (06/15/2024 12:00 AM CDT) H. PYLORI AG (STOOL) [place] Comment: HELICOBACTER PYLORI AG, EIA, STOOL Micro Number: [id number] Test Status: Final Specimen Source: Stool Specimen Quality: Adequate H.pylori Ag: Not Detected Antimicrobials, proton pump inhibitors, and bismuth preparations inhibit H. pylori and ingestion up to two weeks prior to testing may cause false negative results. If clinically indicated the test should be repeated on a new specimen obtained two weeks after discontinuing treatment. Reference Range: Not Detected STOOL SPECIMEN / Unknown 06/15/2024 06/15/2024 7:26 PM CDT Narrative Resulting Agency Comment Performing Organization Information: Site ID: SL Name: [facility] Address: [facility] [place] [address] Director: Lucita Jimenez Sadaf Christensen DO MICROBIOLOGY - GENERAL ORDERA BLES Final Result [facility] [address], * PROCEDURE GENERIC (SCAN ORDER) (06/03/2024) 06/03/2024 Doc [facility] Scanned SCANNING Final Resu lt * TSH W/REFLEX (05/16/2024 3:25 PM CDT) TSH 1.330 0.358 - 3.740 uIU/ML 05/17/2024 11:52 AM CDT [facility] 05/16/2024 3:25 PM CDT Sadaf Christensen DO LABORATORY Final Result Performing Organization Address City/[facility]/ZIP Co de Phone Number [facility] [address] [place] [address], * (ABNORMAL) HEMOGLOBIN, GLYCOSYLATED (05/16/2024 3:25 PM CDT) HGB A1C 5.4 4.5 - 6.2 % 05/17/2024 9:51 AM CDT [facility] ESTIMATED AVG GLUCOSE 108(H) 74 - 106 MG/DL 05/17/2024 9:51 AM CDT [facility] 05/16/2024 3:25 PM CDT Sadaf Christensen DO LABORATORY Final Result [facility] [address] [place] [address], * (ABNORMAL) URINALYSIS (05/16/2024 3:25 PM CDT) COLOR (U) YELLOW 05/16/2024 7:42 PM CDT [facility] TRANSPARENCY CLEAR CLEAR 05/16/2024 7:42 PM CDT [facility] SPECIFIC GRAVITY (U) 1.020 1.003 - 1.040 05/16/2024 7:42 PM CDT [facility] U PH 6.0 5.0 - 9.0 05/16/2024 7:42 PM CDT [facility] PROTEIN RANDOM (U) NEGATIVE NEGATIVE 05/16/2024 7:42 PM CDT [facility] GLUCOSE (U) NEGATIVE NEGATIVE 05/16/2024 7:42 PM CDT [facility] KETONES MG/DL (U) NEGATIVE NEGATIVE 05/16/2024 7:42 PM CDT [facility] BILIRUBIN (U) NEGATIVE NEGATIVE 05/16/2024 7:42 PM CDT [facility] BLOOD (U) NEGATIVE NEGATIVE 05/16/2024 7:42 PM CDT [facility] UROBILINOGEN 0.2 0.0 - 2.0 EU/DL 05/16/2024 7:42 PM CDT [facility] NITRITES NEGATIVE NEGATIVE 05/16/2024 7:42 PM CDT [facility] LEUKOCYTES (U) NEGATIVE NEGATIVE 05/16/2024 7:42 PM CDT [facility] RBC/HPF 0-3 0 - 3 /HPF 05/16/2024 7:42 PM CDT [facility] WBC/HPF 0-3 0 - 3 /HPF 05/16/2024 7:42 PM CDT [facility] EPI/HPF 0-3 /HPF 05/16/2024 7:42 PM CDT [facility] BACTERIA (U) TRACE(A) NONE SEEN 05/16/2024 7:42 PM CDT [facility] MUCUS FEW 05/16/2024 7:42 PM CDT [facility] URINE SPECIMEN FROM URETHRA / Unknown 05/16/2024 3:25 PM CDT Sadaf Christensen DO URINE ORDERABLES Final Result [facility] [address] [place] [address], * COMPREHENSIVE METABOLIC PANEL (05/16/2024 3:25 PM CDT) SODIUM S/P/B 138 136 - 145 MMOL/L 05/17/2024 11:52 AM CDT [facility] POTASSIUM S/P/B 4.1 3.5 - 5.1 MMOL/L 05/17/2024 11:52 AM CDT [facility] CHLORIDE S/P/B 102 98 - 107 MMOL/L 05/17/2024 11:52 AM CDT [facility] CO2 28.3 21 - 32 MMOL/L 05/17/2024 11:52 AM CDT [facility] GLUCOSE 87 70 - 99 MG/DL 05/17/2024 11:52 AM CDT [facility] BUN 8 7 - 18 MG/DL 05/17/2024 11:52 AM CDT [facility] CREATININE S/P/B 0.68 0.55 - 1.02 MG/DL 05/17/2024 11:52 AM CDT [facility] CALCIUM S/P/B 9.3 8.4 - 10.5 MG/DL 05/17/2024 11:52 AM CDT [facility] BILIRUBIN TOTAL S/P/B 0.2 0.2 - 1.0 MG/DL 05/17/2024 11:52 AM T [facility] ALKALINE PHOSPHATASE S/P/B 76 37 - 98 U/L 05/17/2024 11:52 AM CDT [facility] AST 26 15 - 37 U/L 05/17/2024 11:52 AM T [facility] ALT 48 14 - 59 U/L 05/17/2024 11:52 AM CDT [facility] TOTAL PROTEIN S/P/B 8.1 6.4 - 8.2 G/DL 05/17/2024 11:52 AM T [facility] ALBUMIN S/P/B 4.3 3.4 - 5.0 G/DL 05/17/2024 11:52 AM T [facility] ANION GAP 7.7 5 - 15 MMOL/L 05/17/2024 11:52 AM T [facility] Comment:REFERENCE RANGE NOT ESTABLISHED OSMOLALITY (CALC) 284 MOSM/KG 025 11:52 AM T [facility] Comment:REFERENCE RANGE NOT ESTABLISHED GFR ESTIMATE >90 >90 ML/MIN/1. 73 M2 05/17/2024 11:52 AM T [facility] GFR NOTES GFR REFERENCE S: 05/17/2024 11:52 AM T [facility] Comment: THE ESTIMATED GFR IS CALCULATED [...] <15 ml/min/1.73 m2 05/16/2024 3:25 PM CDT us Sadaf Christensen DO LABORATORY Final Result [facility] [address] [place] [address], * (ABNORMAL) LIPID PANEL (05/16/2024 3:25 PM CDT) CHOLESTEROL 144 <200 MG/DL 05/17/2024 11:52 AM CDT [facility] TRIGLYCERIDES 97 <150 MG/DL 05/17/2024 11:52 AM CDT [facility] HDL 34(L) >40 MG/DL 05/17/2024 11:52 AM CDT [facility] LDL-C 91 <100 MG/DL 05/17/2024 11:52 AM CDT [facility] VLDL CALCULATION 19 5 - 28 MG/DL 05/17/2024 11:52 AM CDT [facility] CHOL/HDL RATIO 4.2(H) 0.0 - 4.0 05/17/2024 11:52 AM CDT [facility] LDL/HDL 2.7(H) 0.41 - 2.13 05/17/2024 11:52 AM T [facility] NON HDL CHOLESTEROL 110 <140 MG/DL 05/17/2024 11:52 AM CDT [facility] 05/16/2024 3:25 PM CDT Sadaf M Fermin HASKINS LABORATORY Final Result [facility] [address] [place] [address], * (ABNORMAL) CBC W/DIFF AUTOMATED (05/16/2024 3:25 PM CDT) WBC 9.20 4.00 - 10.80 x10'3/uL 05/16/2024 7:38 PM CDT [facility] RBC 4.57 4.10 - 5.40 x10'6/uL 05/16/2024 7:38 PM CDT [facility] HGB 13.6 12.0 - 16.0 G/DL 05/16/2024 7:38 PM CDT [facility] HCT 41.2 36.0 - 47.0 % 05/16/2024 7:38 PM CDT [facility] MCV 90.2 78.0 - 100.0 FL 05/16/2024 7:38 PM CDT [facility] MCH 29.8 27.0 - 31.0 PG 05/16/2024 7:38 PM CDT [facility] MCHC 33.0 33.0 - 36.0 G/DL 05/16/2024 7:38 PM CDT [facility] RDW 12.3 11.5 - 14.5 % 05/16/2024 7:38 PM CDT [facility] PLT 411(H) 150 - 350 x10'3/uL 05/16/2024 7:38 PM CDT [facility] MPV 10.5(H) 7.4 - 10.4 FL 05/16/2024 7:38 PM CDT [facility] DIFFERENTIAL TYPE AUTOMATED DIFFERENTIAL 05/16/2024 7:38 PM CDT [facility] NEUTROPHILS % 62.2 % 05/16/2024 7:38 PM CDT [facility] LYMPHOCYTES % 28.9 % 05/16/2024 7:38 PM CDT [facility] MONOCYTES % 6.5 % 05/16/2024 7:38 PM CDT [facility] EOSINOPHILS % 1.6 % 05/16/2024 7:38 PM CDT [facility] BASOPHILS % 0.5 % 05/16/2024 7:38 PM CDT [facility] IMMATURE GRANS % 0.3 % 05/16/2024 7:38 PM CDT [facility] ABS. NEUTROPHILS 5.71 1.60 - 8.30 x10'3/uL 05/16/2024 7:38 PM CDT [facility] ABS. LYMPHOCYTES 2.66 0.80 - 4.70 x10'3/uL 05/16/2024 7:38 PM CDT [facility] ABS. MONOCYTES 0.60 0.00 - 1.50 x10'3/uL 05/16/2024 7:38 PM CDT [facility] ABS. EOSINOPHILS 0.15 0.00 - 0.40 x10'3/uL 05/16/2024 7:38 PM CDT [facility] ABS. BASOPHILS 0.05 0.00 - 0.20 x10'3/uL 05/16/2024 7:38 PM CDT [facility] ABS. IMMATURE GRANULOCYTES 0.03 0.00 - 0.03 x10'3/uL 05/16/2024 7:38 PM CDT [facility] 05/16/2024 3:25 PM CDT us Sadaf Christensen DO LABORATORY Final Result [facility] [address] [place] [address], * (ABNORMAL) VITAMIN D, 25 OH (05/16/2024 3:25 PM CDT) VITAMIN D 25 HYDROXY TOTAL S/P/B 18.7(L) 30 - 100 NG/ML 05/17/2024 11:52 AM CDT [facility] Comment: DEFICIENT <20 INSUFFICIENT 20-30 SUFFICIENT 30-100 05/16/2024 3:25 PM CDT Sadaf Christensen DO LABORATORY Final Result Performing Organization Address [facility] Co de Phone Number [facility] [address] [place] [address], from Last 3 Months Insurance [facility] Care Teams Manufacturing Support Engineer Relationship Specialty Start Date End Date Sadaf Christensen DO [address] [place] [address] PCP - General FAMILY PRACTICE 04/29/24
--- OUTSIDE RECORDS SUMMARY | 2024-06-18 12:15 | XMS_ITS | Encounter Summary ---
Author Organization [facility] Address [address] [place] [address] Care Team Providers Care Fence Post Cutter Name Role Phone Sadaf Christensen DO Primary Care Provider [phone] Encounter Details Date Type Department Care Team (Late st Contact Info) Description 06/18/2024 My[facility] [place] [address] [place] [address] Sadaf Christensen DO [address] [place], [place] [id number] Blood pressure Social History Tobacco Use Types Packs/Day Years [...] Description 06/21/2024 2:40 PM CDT [facility] [place] [address] [place] [address] Sadaf Christensen DO [address] [place] [address] documented as of this encounter Visit Diagnoses Not on filedocumented in this encounter Additional Health Concerns Assessment Noted Time PHQ-9 Depression Total Score: 3 05/17/19 25 2:25 PM CDT documented as of this encounter Care Teams Fence Post Cutter Relationship Specialty Start Date End Date Sadfa Christensen DO [address] [place] [address] PCP - General FAMILY PRACTICE 04/29/24 documented as of this encounter
[2024-06-18 12:34] LABS: Basophils Percent Auto 0.3 % (0.2-1.2); Eosinophils Absolute Auto 0.2 K/mm3 (0-0.3); Eosinophils Percent Auto 2.2 % (0-4.4); Hematocrit 41.7 % (37.0-47.0); Hemoglobin 13.4 g/dL (12.0-15.0); Immature Granulocyte Absolute 0.03 K/mm3 (0.00-0.031); Immature Granulocyte Percent A 0.3 % (0-0.5); Lymphocytes Percent Auto 26.9 % (18.3-44.2); Mean Corpuscular HGB Conc 32.1 g/dl (32-36); Mean Corpuscular Hemoglobin 29.5 pg (26-34); Mean Corpuscular Volume 91.6 fl (80-100); Mean Platelet Volume 9.9 fl (7.4-10.4); Monocytes Absolute Auto 0.8 K/mm3 (0.1-0.6); Neutrophils Percent Auto 62.3 % (45.5-73.1); Platelet Count Result 391 k/mm3 (150-375); Red Blood Count 4.55 M/mm3 (4.2-5.4); Red Cell Distribution Width 12.6 % (11.5-14.5); White Blood Count 9.7 K/mm3 (4.5-10.0)
[2024-06-18 12:40] VITALS: BP 126/87; PULSE 84; RESP 16; O2SAT 100
[2024-06-18 12:45] LABS: Alanine Aminotransferase 47 U/L (6-35); Alkaline Phosphatase 87 U/L (38-126); Anion Gap 12 mmol/L (4-12); Aspartate Amino Transferase 40 U/L (14-36); Bilirubin,Total 0.5 mg/dL (0.2-1.3); Blood Urea Nitrogen 10 mg/dL (7-17); Calcium 9.5 mg/dL (8.4-10.2); Carbon Dioxide 24 mmol/L (22-30); Chloride 103 mmol/L (98-107); Estimated CRCL calculation 143 ml/min; Estimated Glomerular Filt Rate > 60; Glucose 93 mg/dL (65-110); Potassium 4.2 mmol/L (3.4-5.0); Sodium 139 mmol/L (137-145)
--- NOTE | 2024-06-18 12:47 | PC.NURSE ---
patient advised we need a urine sample. she states that she gave one in triage but left the bag with the sample up there. when looking in triage, found a bag with a urine cup in it, but no aircraft electronics technical officer the bag. patient advised that we need another sample.
[2024-06-18 12:52] LABS: BEDSIDEPREGUCG Negative (Negative)
[2024-06-18 13:02] LABS: Add Urine Microscopic? YES; Appearance Urine Clear (Clear); Bacteria Urine None Seen /hpf; Bilirubin Urine Negative (Negative); Blood Urine Negative (Negative); Color Urine Yellow (Yellow); Glucose Urine UA Negative (Negative); Ketones Urine Negative (Negative); Leukocyte Esterase Ur Trace LEU/UL (Negative); Nitrate Urine Negative (Negative); Non Pathogenic Casts 0-2; Protein Urine Negative (Negative); RBC Urine 0-2 /hpf (0-2); Specific Grav Ur 1.004 (1.001-1.035); Squamous Epithelial Cell Urine None Seen /hpf (Few); Urobilinogen Urine 0.2 mg/dL (<2.0); WBC Urine 0-5 /hpf (0-3)
--- OUTSIDE RECORDS SUMMARY | 2024-06-18 13:17 | XMS_ITS | Encounter Summary ---
Author Organization [facility] Address [address] [place] [address] Care Team Providers Care Chemotherapist Name Role Phone Sadaf Christensen DO Primary Care Provider Encounter Details Date Type Department Care Team (Late st Contact Info) Description 06/18/2024 [facility] [place] [address] [facility] [address] [place] [address] Sadaf Christensen DO [address] [address] [place], [place] [id number] Blood pressure Social History Tobacco Use Types [...] Description 06/21/2024 2:40 PM CDT [facility] [place] [address] [place] [address] Sadaf Christensen DO [address] [facility] [place] [address] documented as of this encounter Visit Diagnoses Not on filedocumented in this encounter Additional Health Concerns Assessment Noted Time PHQ-9 Depression Total Score: 3 05/17/19 25 2:25 PM CDT documented as of this encounter Care Teams Chemotherapist Relationship Specialty Start Date End Date Sadaf Christensen DO [address] [facility] [address] [place] [address] PCP - General FAMILY PRACTICE 04/29/24 documented as of this encounter
--- OUTSIDE RECORDS SUMMARY | 2024-06-18 13:17 | XMS_ITS | Clinical Summary ---
Author Organization [facility] Address [address] [place] [address] Care Team Providers Care Roller Skate Repairer Name Role Phone Unavailable Primary Care Provider Unavailabl e Source Comments [facility] Relationship Science,non-owned Affiliates and Associated Physician Practices is amultiple site organization consisting of ambulatory clinics and hospital sitesin [place], [place], [place] and [place]. This disclosure is being madepursuant to the Care Everywhere program and may not contain all information available regarding this patient. Last updated 17.[facility] Relationship Science Social History Tobacco Use Types Packs/Day Years Used Date Smoking Tobacco: Never Assessed Comments Unknown Sex and Gender Information Value Date Recorded Sex Assigned at Not on file Legal Sex Female 5:41 AM CAREER TECHNICAL EDUCATION INSTRUCTOR Gender Identity Not on file Sexual Orientation [...] age to complete this topic Insurance [employer] SELF PAY NO INSURANCE Member Subscriber Plan / Payer (Ef fective for All Dates) Name:Oscar Reva Kilo Member ID:Not on file Relation to Subscriber:Not on file Name:REVA ACOSTA Subscriber ID:Not on file (Home) Address: [address] [place] [id number] Payer ID:Not on file Group ID:Not on file Type:Self Pay Address: [place], [place]
--- OUTSIDE RECORDS SUMMARY | 2024-06-18 13:17 | XMS_ITS | Encounter Summary ---
Author Organization [facility] Address [address] [place] [address] Care Team Providers Care Yard Labor Supervisor Name Role Phone , Generic Conversion Primary Care Provider Unavailable Anila Le MD Primary Care Provider [phone] None, Provider Primary Care Provider UnavailSuzan Taylor DO Primary Care Provider [phone] Sadaf Christensen DO Primary Care Provider [phone] Encounter Details Date Type Department Care Team (Late st Contact Info) Description 12/17/2016 [place] [address] , Generic ConversionMD Social History Tobacco Use [...] Description 06/21/2024 2:40 PM CDT Office Visit [facility] Multispecialty Care - [place] [address] [place], [place] [address] Sadaf Christensen DO [address] [place] [address] documented as of this encounter Visit Diagnoses Not on filedocumented in this encounter Care Teams Yard Labor Supervisor Relationship Specialty Start Date End Date Escobar Larson MD PCP - General 03/09/15 Anila Le MD PCP - General PEDIATRICS 11/28/18 01/13/21 None, Provider, PCP - General 01/14/21 02/02/22 Suzan Pena DO PCP - General FAMILY PRACTICE 02/03/22 04/28/24 Sadaf Christensen DO [address] [place] [address] PCP - General FAMILY PRACTICE 04/29/24 documented as of this encounter
--- OUTSIDE RECORDS SUMMARY | 2024-06-18 13:17 | XMS_ITS | Encounter Summary ---
Author Organization [facility] Address [address] [place] [address] Care Team Providers Care Engineered Wood Designer Name Role Phone Sadaf Christensen DO Primary Care Provider [phone] Encounter Details Date Type Department Care Team (Latest Contact Info) Description 05/23/2024 My[facility] [place] [address] [facility] [address] [place] [address] Sadaf Christensen DO [address] [facility] [address] [place], [place] [id number] Gallbladder surgery Social History Tobacco Use Types [...] Description 06/21/2024 2:40 PM CDT [facility] [place] [address] [place] [address] Sadaf Christensen DO [address] [facility] [address] [place], [place] [address] documented as of this encounter Visit Diagnoses Not on filedocumented in this encounter Additional Health Concerns Assessment Noted Time PHQ-9 Depression Total Score: 3 05/17/19 25 2:25 PM CDT documented as of this encounter Care Teams Engineered Wood Designer Relationship Specialty Start Date End Date Sadaf Christensen DO [address] [facility] [address] [place] [address] PCP - General FAMILY PRACTICE 04/29/24 documented as of this encounter
--- OUTSIDE RECORDS SUMMARY | 2024-06-18 13:17 | XMS_ITS | Encounter Summary ---
Author Organization [facility] Address [address] [place] [address] Care Team Providers Care Apprentice Painter Brush Name Role Phone Sadaf Christensen DO Primary Care Provider [phone] Encounter Details Date Type Department Care Team (Latest Contact Info) Description 06/15/2024 MyChart Message Enc [facility] [place] [address] [place], [place] [phone] Sadaf Christensen DO [address] [place], [place] [phone] Lexapro question Social History Tobacco Use Types [...] Description 06/21/2024 2:40 PM CDT Office Visit [facility] Mult[facility]pecialty [facility] [place] [address] [place] [address] Sadaf Christensen DO [address] [place] [address] documented as of this encounter Visit Diagnoses Not on filedocumented in this encounter Additional Health Concerns Assessment Noted Time PHQ-9 Depression Total Score: 3 05/17/19 25 2:25 PM CDT documented as of this encounter Care Teams Apprentice Painter Brush Relationship Specialty Start Date End Date Sadaf Christensen DO [address] [facility] [address] [place] [address] PCP - General FAMILY PRACTICE 04/29/24 documented as of this encounter
--- OUTSIDE RECORDS SUMMARY | 2024-06-18 13:17 | XMS_ITS | Clinical Summary ---
Author Organization [facility] Address [address] [place] [address] Care Team Providers Care Police Guard Name Role Phone FerminSadaf Primary Care Provider [phone] Allergies Active Allergy Reactions Criticality Noted Date [...] reports she went to emergency department at [place] 04/30/2024 for abdominal pain. She reports abdominal [...] MRCP. Requested records from ED visit at [place]. Cervical cancer screening 05/16/2024 Overview (05/16/2024): Initial visit 05/16/2024: She reports she had [facility] in [address] [facility] Assessment & Plan (05/16/2024 3:27 PM [...] She is agreeable and will complete through [facility]. Generalized anxiety disorder 05/16/2024 Overview (05/16/2024): Initial [...] Care Team Description 06/18/2024 MyChart Message Enc [facility] Multispecialty Care [facility] [address] [facility] [address] [place] [address] Sadaf Christensen, Blood pressure 06/17/2024 Results Follow-Up [facility] [place] [id number] [facility] [address] [place] [address] Sadaf Christensen, HELICOBACTER PYLORI, STOOL, EIA, URINALYSIS, HEMOGLOBIN, GLYCOSYLATED, Additional followed-up results: 5 06/15/2024 Expect [facility]art Message Enc [facility] [place] [address] [facility] [address] [place] [address] Sadaf Christensen, Lexapro question 06/03/2024 Scan [employer] HEALTH INFO SRVCS Scanned, [facility] Procedure (SCAN) 05/23/2024 eMithilaHaatt Message Enc [facility] [place] [address] [facility] [address] [place] [address] Sadaf Christensen, Gallbladder surgery 05/16/2024 2:20 PM CDT Office Visit [facility] [place] [address] [facility] [facility] [address] [place] [address] Sadaf Christensen, New Patient (Pt states she is having ABD issues and sees a general surgeon the 8th at [place]. /But wanted to get a PCP to [...] Description 06/21/2024 2:40 PM CDT Office Visit [facility] Mult[facility] - [place] [address] [place] [address] Sadaf Christensen, [address] [place] [address] Health Maintenance Due Date Last Done Comments [...] Meningococcal Vaccine Completed 08/24/2015, 011 PHQ-2 (Physician Badger) Completed 05/16/2024 Meningococcal B Vaccine Aged Out [...] 12:00 AM CDT) H. PYLORI AG (STOOL) [place] Comment: HELICOBACTER PYLORI AG, EIA, STOOL Micro Number: [id number] Test Status: Final Specimen Source: Stool Specimen [...] Performing Organization Information: Site ID: SL Name: [facility] Address: [facility] [place] [address] Director: Lucita Jimenez Sadaf Christensen DO MICROBIOLOGY - GENERAL ORDERA BLES Final Result [facility] [address] [address], * PROCEDURE GENERIC (SCAN ORDER) (06/03/2024) 06/03/2024 [facility] Scanned SCANNING Final Resu lt * TSH W/REFLEX (05/16/2024 3:25 PM CDT) TSH 1.330 0.358 - 3.740 uIU/ML 05/17/2024 11:52 AM CDT [facility] 05/16/2024 3:25 PM CDT Sadaf Christensen DO LABORATORY Final Result Performing Organization Address City/[facility]/ZIP Co de Phone Number [facility] [address] [place] [address], * (ABNORMAL) HEMOGLOBIN, GLYCOSYLATED (05/16/2024 3:25 PM CDT) HGB A1C 5.4 4.5 - 6.2 % 05/17/2024 9:51 AM CDT [facility] ESTIMATED AVG GLUCOSE 108(H) 74 - 106 MG/DL 05/17/2024 9:51 AM CDT [facility] 05/16/2024 3:25 PM CDT Sadaf Christensen DO LABORATORY Final Result [facility] [address] [place] [address], * (ABNORMAL) URINALYSIS (05/16/2024 3:25 PM CDT) COLOR (U) YELLOW 05/16/2024 7:42 PM CDT [facility] TRANSPARENCY CLEAR CLEAR 05/16/2024 7:42 PM CDT [facility] SPECIFIC GRAVITY (U) 1.020 1.003 - 1.040 05/16/2024 7:42 PM CDT [facility] U PH 6.0 5.0 - 9.0 05/16/2024 7:42 PM CDT [facility] PROTEIN RANDOM (U) NEGATIVE NEGATIVE 05/16/2024 7:42 PM CDT [facility] GLUCOSE (U) NEGATIVE NEGATIVE 05/16/2024 7:42 PM CDT [facility] KETONES MG/DL (U) NEGATIVE NEGATIVE 05/16/2024 7:42 PM CDT [facility] BILIRUBIN (U) NEGATIVE NEGATIVE 05/16/2024 7:42 PM CDT [facility] BLOOD (U) NEGATIVE NEGATIVE 05/16/2024 7:42 PM CDT [facility] UROBILINOGEN 0.2 0.0 - 2.0 EU/DL 05/16/2024 7:42 PM CDT [facility] NITRITES NEGATIVE NEGATIVE 05/16/2024 7:42 PM CDT [facility] LEUKOCYTES (U) NEGATIVE NEGATIVE 05/16/2024 7:42 PM CDT [facility] RBC/HPF 0-3 0 - 3 /HPF 05/16/2024 7:42 PM CDT [facility] WBC/HPF 0-3 0 - 3 /HPF 05/16/2024 7:42 PM CDT [facility] EPI/HPF 0-3 /HPF 05/16/2024 7:42 PM CDT [facility] BACTERIA (U) TRACE(A) NONE SEEN 05/16/2024 7:42 PM CDT [facility] MUCUS FEW 05/16/2024 7:42 PM CDT [facility] URINE SPECIMEN FROM [facility]RETHRA / Unknown 05/16/2024 3:25 PM CDT Sadaf Christensen DO URINE ORDERABLES Final Result [facility] [address] [place] [address], * COMPREHENSIVE METABOLIC PANEL (05/16/2024 3:25 PM CDT) SODIUM S/P/B 138 136 - 145 MMOL/L 05/17/2024 11:52 AM CDT [facility] POTASSIUM S/P/B 4.1 3.5 - 5.1 MMOL/L 05/17/2024 11:52 AM CDT [facility] CHLORIDE S/P/B 102 98 - 107 MMOL/L 05/17/2024 11:52 AM CDT [facility] CO2 28.3 21 - 32 MMOL/L 05/17/2024 11:52 AM CDT [facility] GLUCOSE 87 70 - 99 MG/DL 05/17/2024 11:52 AM CDT [facility] BUN 8 7 - 18 MG/DL 05/17/2024 11:52 AM CDT [facility] CREATININE S/P/B 0.68 0.55 - 1.02 MG/DL 05/17/2024 11:52 AM CDT [facility] CALCIUM S/P/B 9.3 8.4 - 10.5 MG/DL 05/17/2024 11:52 AM CDT [facility] BILIRUBIN TOTAL S/P/B 0.2 0.2 - 1.0 MG/DL 05/17/2024 11:52 AM T [facility] ALKALINE PHOSPHATASE S/P/B 76 37 - 98 U/L 05/17/2024 11:52 AM CDT [facility] AST 26 15 - 37 U/L 05/17/2024 11:52 AM T [facility] ALT 48 14 - 59 U/L 05/17/2024 11:52 AM CDT [facility] TOTAL PROTEIN S/P/B 8.1 6.4 - 8.2 G/DL 05/17/2024 11:52 AM T [facility] ALBUMIN S/P/B 4.3 3.4 - 5.0 G/DL 05/17/2024 11:52 AM T [facility] ANION GAP 7.7 5 - 15 MMOL/L 05/17/2024 11:52 AM T [facility] Comment:REFERENCE RANGE NOT ESTABLISHED OSMOLALITY (CALC) 284 MOSM/KG 025 11:52 AM T [facility] Comment:REFERENCE RANGE NOT ESTABLISHED GFR ESTIMATE >90 >90 ML/MIN/1. 73 M2 05/17/2024 11:52 AM T [facility] GFR NOTES GFR REFERENCE S: 05/17/2024 11:52 AM T [facility] Comment: THE ESTIMATED GFR IS CALCULATED [...] us Sadaf Christensen DO LABORATORY Final Result [facility] [address] [place] [address], * (ABNORMAL) LIPID PANEL (05/16/2024 3:25 PM CDT) CHOLESTEROL 144 <200 MG/DL 05/17/2024 11:52 AM CDT [facility] TRIGLYCERIDES 97 <150 MG/DL 05/17/2024 11:52 AM CDT [facility] HDL 34(L) >40 MG/DL 05/17/2024 11:52 AM CDT [facility] LDL-C 91 <100 MG/DL 05/17/2024 11:52 AM CDT [facility] VLDL CALCULATION 19 5 - 28 MG/DL 05/17/2024 11:52 AM CDT [facility] CHOL/HDL RATIO 4.2(H) 0.0 - 4.0 05/17/2024 11:52 AM CDT [facility] LDL/HDL 2.7(H) 0.41 - 2.13 05/17/2024 11:52 AM T [facility] NON HDL CHOLESTEROL 110 <140 MG/DL 05/17/2024 11:52 AM CDT [facility] 05/16/2024 3:25 PM CDT Sadaf M Fermin HASKINS LABORATORY Final Result [facility] [address] [place] [address], * (ABNORMAL) CBC W/DIFF AUTOMATED (05/16/2024 3:25 PM CDT) WBC 9.20 4.00 - 10.80 x10'3/uL 05/16/2024 7:38 PM CDT [facility] RBC 4.57 4.10 - 5.40 x10'6/uL 05/16/2024 7:38 PM CDT [facility] HGB 13.6 12.0 - 16.0 G/DL 05/16/2024 7:38 PM CDT [facility] HCT 41.2 36.0 - 47.0 % 05/16/2024 7:38 PM CDT [facility] MCV 90.2 78.0 - 100.0 FL 05/16/2024 7:38 PM CDT [facility] MCH 29.8 27.0 - 31.0 PG 05/16/2024 7:38 PM CDT [facility] MCHC 33.0 33.0 - 36.0 G/DL 05/16/2024 7:38 PM CDT [facility] RDW 12.3 11.5 - 14.5 % 05/16/2024 7:38 PM CDT [facility] PLT 411(H) 150 - 350 x10'3/uL 05/16/2024 7:38 PM CDT [facility] MPV 10.5(H) 7.4 - 10.4 FL 05/16/2024 7:38 PM CDT [facility] DIFFERENTIAL TYPE AUTOMATED DIFFERENTIAL 05/16/2024 7:38 PM CDT [facility] NEUTROPHILS % 62.2 % 05/16/2024 7:38 PM CDT [facility] LYMPHOCYTES % 28.9 % 05/16/2024 7:38 PM CDT [facility] MONOCYTES % 6.5 % 05/16/2024 7:38 PM CDT [facility] EOSINOPHILS % 1.6 % 05/16/2024 7:38 PM CDT [facility] BASOPHILS % 0.5 % 05/16/2024 7:38 PM CDT [facility] IMMATURE GRANS % 0.3 % 05/16/2024 7:38 PM CDT [facility] ABS. NEUTROPHILS 5.71 1.60 - 8.30 x10'3/uL 05/16/2024 7:38 PM CDT [facility] ABS. LYMPHOCYTES 2.66 0.80 - 4.70 x10'3/uL 05/16/2024 7:38 PM CDT [facility] ABS. MONOCYTES 0.60 0.00 - 1.50 x10'3/uL 05/16/2024 7:38 PM CDT [facility] ABS. EOSINOPHILS 0.15 0.00 - 0.40 x10'3/uL 05/16/2024 7:38 PM CDT [facility] ABS. BASOPHILS 0.05 0.00 - 0.20 x10'3/uL 05/16/2024 7:38 PM CDT [facility] ABS. IMMATURE GRANULOCYTES 0.03 0.00 - 0.03 x10'3/uL 05/16/2024 7:38 PM CDT [facility] 05/16/2024 3:25 PM CDT us Sadaf Christensen DO LABORATORY Final Result [facility] [address] [place] [address], * (ABNORMAL) VITAMIN D, 25 OH (05/16/2024 3:25 PM CDT) VITAMIN D 25 HYDROXY TOTAL S/P/B 18.7(L) 30 - 100 NG/ML 05/17/2024 11:52 AM CDT [facility] Comment: DEFICIENT <20 INSUFFICIENT 20-30 SUFFICIENT 30-100 05/16/2024 3:25 PM CDT Sadaf Christensen DO LABORATORY Final Result Performing Organization Address [facility] Co de Phone Number [facility] [address] [place] [address], from Last 3 Months Insurance [facility] Care Teams Police Guard Relationship Specialty Start Date End Date Sadaf Christensen DO [address] [place] [address] PCP - General FAMILY PRACTICE 04/29/24
--- OUTSIDE RECORDS SUMMARY | 2024-06-18 13:17 | XMS_ITS | Encounter Summary ---
Author Organization [facility] Address [address] [place] [address] Care Team Providers Care Mail Handler Sorter Name Role Phone Sdaaf Christensen DO Primary Care Provider [phone] Encounter Details Date Type Department Care Team (Latest Contact Info) Description 06/17/2024 Results Follow-Up [place] [address] [facility] [address] [place] [address] Sadaf Christensen DO [address] [facility] [address] [place] [address] HELICOBACTER PYLORI, STOOL, EIA, URINALYSIS, HEMOGLOBIN, GLYCOSYLATED, [...] Description 06/21/2024 2:40 PM CDT [facility] [place] [address] [facility] [address] [place] [address] Sadaf Christensen DO [address] [place] [address] documented as of this encounter Visit Diagnoses Not on filedocumented in this encounter Additional Health Concerns Assessment Noted Time PHQ-9 Depression Total Score: 3 05/17/19 25 2:25 PM CDT documented as of this encounter Care Teams Mail Handler Sorter Relationship Specialty Start Date End Date Sadaf Christensen DO [address] [place] [address] PCP - General FAMILY PRACTICE 04/29/24 documented as of this encounter
--- NOTE | 2024-06-18 13:29 | PC.NURSE ---
called lab to add on TSHR.
--- NOTE | 2024-06-18 14:30 | ED.GENADULT ---
HPI - General Adult General Chief complaint: Unspecified Stated complaint: High BP-feeling flushed, dizziness Time Seen by Provider: 06/18/24 12:35 Source: patient Mode of arrival: ambulatory Limitations: no limitations History of Present Illness HPI narrative: This is a 23-year-old female, with history of GERD, asthma and anxiety, who presents emergency department with complaints of feeling flushed and lightheaded. The patient states she was in her usual state of health until she restarted her escitalopram 3 days ago. Shortly after restarting the medication she felt flushed and intermittently lightheaded. She denies any other new medications. She states he had similar symptoms with escitalopram previously but at that time was not also taking spironolactone. She denies bleeding, nausea, vomiting, or recent illness. She has no other complaints at this time. Related Data Home Medications ?Medication ?Instructions ?Recorded ?Confirmed ?Last Taken ?Type spironolactone 100 mg tablet 100 mg PO DAILY 05/16/24 06/03/24 06/02/24 History ergocalciferol (vitamin D2) 1,000 1,000 mcg PO DAILY 05/22/24 06/03/24 05/31/24 History unit capsule escitalopram oxalate 10 mg tablet 10 mg PO DAILY 05/22/24 05/29/24 Unknown History famotidine 20 mg tablet (Acid 20 mg PO DAILY 05/22/24 06/03/24 06/02/24 History Controller) Allergies Allergy/AdvReac Type Severity Reaction Status Date / Time Penicillins Allergy Hives Verified 06/03/24 12:37 sulfamethoxazole (From Allergy Hives Verified 06/03/24 12:37 Sulfamethoxazole-Trimethoprim) trimethoprim (From Allergy Hives Verified 06/03/24 12:37 Sulfamethoxazole-Trimethoprim) Review of Systems Review of Systems: All systems reviewed & are unremarkable except as noted in HPI and below PMFSH Past Medical History Medical History GERD (gastroesophageal reflux disease) Morbid obesity Marijuana smoker Anxiety Asthma Family History Family History Father Alcohol abuse Cancer Diabetes mellitus Mother Asthma Cancer Depression Anxiety Hypertension Thyroid disease Cerebrovascular accident Social History Social History Smoking status: Never smoker Alcohol intake: never Substance use: current Substance use type: marijuana Other substance usage details: Marijuana at night Do You Feel Safe in your Home?: Yes Lack of Transportation: No Lack of Food: Never True Current Housing: I Have Housing Concerned About Future Housing: No Difficulty Paying Gas/Electric Bills: No Difficulty Paying for Meds: No Currently Unemployed: No Education: High School Diploma/GED Difficulty w/ Childcare or Family Care: No Living arrangements: with family Occupation/Education: occupation Gender identity (if verbalized by the patient): Female Spiritual care concerns: No Exam Narrative: GENERAL: Well-developed, well-nourished, and in no acute distress. HEAD: Normocephalic, atraumatic. EYES: PERRLA and EOMI. ENT: Nares clear, no rhinorrhea or epistaxis. Mucous membranes moist. Oropharynx without tonsillar hypertrophy exudate or other lesions. CHEST: Clear to auscultation. No respiratory distress. No wheezes rales or rhonchi HEART: Regular rate and rhythm. No murmur heard. Normal peripheral pulses. ABDOMEN: Soft, nontender, nondistended, normal active bowel sounds. EXTREMITIES: Normal range of motion. No edema. SKIN: Flushed cheeks. Warm, dry, no rash. NEURO: Alert and oriented x3. No focal deficit. Moving all 4 limbs spontaneously PSYCH: Normal mood and affect. Course Course Emergency Course: 14:32 - CBC unremarkable. Chemistries within normal limits aside from slightly elevated AST/ALT of 40/47 respectively. Total bilirubin and alk-phos within normal limits. Urinalysis demonstrates trace leukocyte esterase but is not concerning for urinary tract infection. The patient has no symptoms concerning for UTI. test negative. Chest x-ray unremarkable. EKG demonstrates normal sinus rhythm. TSH within normal limits. I suspect the patient's symptoms are related to escitalopram. Will discharge with recommendation for follow-up with primary care doctor and avoiding future use of the escitalopram. I discussed the findings and recommendations with the patient. Discussed return and emergency precautions including signs/symptoms of ACS, syncope and respiratory distress. The patient voiced understanding and agreement with the plan. All questions answered to her satisfaction. Vital Signs Vital signs: Vital Signs Temperature 97.5 F L 06/18/24 11:27 Pulse Rate 103 H 06/18/24 11:27 Respiratory Rate 18 06/18/24 11:27 Blood Pressure 150/105 H 06/18/24 11:27 Pulse Oximetry 100 06/18/24 11:27 Oxygen Delivery Room Air 06/18/24 11:27 Temperature 97.5 F L 06/18/24 11:27 Pulse Rate 82 06/18/24 14:47 Respiratory Rate 16 06/18/24 14:47 Blood Pressure 126/77 06/18/24 14:47 Pulse Oximetry 100 06/18/24 14:47 Oxygen Delivery Room Air 06/18/24 11:27 Medical Decision Making MDM Narrative Medical decision making narrative: Plan: Labs, imaging, EKG, test, reassess Differential diagnosis: Medication side effect, Arrhythmia, dehydration, , metabolic abnormality, UTI, pneumonia, pneumothorax, other Vital Signs Vital Signs: Vital Signs Temperature 97.5 F L 06/18/24 11:27 Pulse Rate 103 H 06/18/24 11:27 Respiratory Rate 18 06/18/24 11:27 Blood Pressure 150/105 H 06/18/24 11:27 Pulse Oximetry 100 06/18/24 11:27 Oxygen Delivery Room Air 06/18/24 11:27 Temperature 97.5 F L 06/18/24 11:27 Pulse Rate 82 06/18/24 14:47 Respiratory Rate 16 06/18/24 14:47 Blood Pressure 126/77 06/18/24 14:47 Pulse Oximetry 100 06/18/24 14:47 Oxygen Delivery Room Air 06/18/24 11:27 Lab Data 06/18/24 12:23 06/18/24 12:23 Labs: Lab Results 06/18/24 06/18/24 06/18/24 Range/Units 12:22 12:23 12:49 WBC 9.7 (4.5-10.0) K/mm3 RBC 4.55 (4.2-5.4) M/mm3 Hgb 13.4 (12.0-15.0) g/dL Hct 41.7 (37.0-47.0) % MCV 91.6 (80-100) fl MCH 29.5 (26-34) pg MCHC 32.1 (32-36) g/dl RDW 12.6 (11.5-14.5) % Plt Count 391 H (150-375) k/mm3 MPV 9.9 (7.4-10.4) fl Immature Gran % (Auto) 0.3 (0-0.5) % Neut % (Auto) 62.3 (45.5-73.1) % Lymph % (Auto) 26.9 (18.3-44.2) % [place] % (Auto) 8.0 (2.6-8.5) % Eos % (Auto) 2.2 (0-4.4) % Baso % (Auto) 0.3 (0.2-1.2) % Lymph # (Auto) 2.60 (0.9-3.2) K/mm3 [place] # (Auto) 0.8 H (0.1-0.6) K/mm3 Eos # (Auto) 0.2 (0-0.3) K/mm3 Baso # (Auto) 0.0 (0.0-0.1) K/mm3 Abs Immat Gran (auto) 0.03 (0.00-0.031) K/mm3 Absolute Neuts (auto) 6.0 (1.3-6.7) K/mm3 Absolute Nucleated RBC 0.000 (0.0-0.012) K/mm3 Nucleated RBC % 0.0 (0.0-0.2) % Sodium 139 (137-145) mmol/L Potassium 4.2 (3.4-5.0) mmol/L Chloride 103 (98-107) mmol/L Carbon Dioxide 24 (22-30) mmol/L Anion Gap 12 (4-12) mmol/L BUN 10 (7-17) mg/dL Creatinine 0.60 L (0.7-1.0) mg/dL Estim Creat Clear Calc 143 ml/min Estimated GFR > 60 (59 - ) Glucose 93 (65-110) mg/dL Calcium 9.5 (8.4-10.2) mg/dL Total Bilirubin 0.5 (0.2-1.3) mg/dL AST 40 H (14-36) U/L ALT 47 H (6-35) U/L Alkaline Phosphatase 87 (38-126) U/L Total Protein 9.0 H (6.3-8.2) g/dL Albumin 5.0 (3.5-5.1) g/dL TSH (Reflex) 3.040 (0.465-4.68) uIU/mL Urine Color Yellow (Yellow) Urine Appearance Clear (Clear) Urine pH 6.0 (5.0-9.0) Ur Specific [place] 1.004 (1.001-1.035) Urine Protein Negative (Negative) mg/dL Urine Glucose (UA) Negative (Negative) mg/dL Urine Ketones Negative (Negative) mg/dL Ur Blood (Man) Negative (Negative) Urine Nitrate Negative (Negative) Urine Bilirubin Negative (Negative) Urine Urobilinogen 0.2 (<2.0) mg/dL Leukocyte Esterase Rfl Trace H (Negative) TIFFANY/UL Urine RBC 0-2 (0-2) /hpf Urine WBC 0-5 (0-3) /hpf Ur Squamous Epith Cells None seen (Few) /hpf Urine Bacteria None seen /hpf Urine Casts 0-2 POC Urine HCG, Qual (Negative) 06/18/24 Range/Units 12:50 WBC (4.5-10.0) K/mm3 RBC (4.2-5.4) M/mm3 Hgb (12.0-15.0) g/dL Hct (37.0-47.0) % MCV (80-100) fl MCH (26-34) pg MCHC (32-36) g/dl RDW (11.5-14.5) % Plt Count (150-375) k/mm3 MPV (7.4-10.4) fl Immature Gran % (Auto) (0-0.5) % Neut % (Auto) (45.5-73.1) % Lymph % (Auto) (18.3-44.2) % [place] % (Auto) (2.6-8.5) % Eos % (Auto) (0-4.4) % Baso % (Auto) (0.2-1.2) % Lymph # (Auto) (0.9-3.2) K/mm3 [place] # (Auto) (0.1-0.6) K/mm3 Eos # (Auto) (0-0.3) K/mm3 Baso # (Auto) (0.0-0.1) K/mm3 Abs Immat Gran (auto) (0.00-0.031) K/mm3 Absolute Neuts (auto) (1.3-6.7) K/mm3 Absolute Nucleated RBC (0.0-0.012) K/mm3 Nucleated RBC % (0.0-0.2) % Sodium (137-145) mmol/L Potassium (3.4-5.0) mmol/L Chloride (98-107) mmol/L Carbon Dioxide (22-30) mmol/L Anion Gap (4-12) mmol/L BUN (7-17) mg/dL Creatinine (0.7-1.0) mg/dL Estim Creat Clear Calc ml/min Estimated GFR (59 - ) Glucose (65-110) mg/dL Calcium (8.4-10.2) mg/dL Total Bilirubin (0.2-1.3) mg/dL AST (14-36) U/L ALT (6-35) U/L Alkaline Phosphatase (38-126) U/L Total Protein (6.3-8.2) g/dL Albumin (3.5-5.1) g/dL TSH (Reflex) (0.465-4.68) uIU/mL Urine Color (Yellow) Urine Appearance (Clear) Urine pH (5.0-9.0) Ur Specific [place] (1.001-1.035) Urine Protein (Negative) mg/dL Urine Glucose (UA) (Negative) mg/dL Urine Ketones (Negative) mg/dL Ur Blood (Man) (Negative) Urine Nitrate (Negative) Urine Bilirubin (Negative) Urine Urobilinogen (<2.0) mg/dL Leukocyte Esterase Rfl (Negative) TIFFANY/UL Urine RBC (0-2) /hpf Urine WBC (0-3) /hpf Ur Squamous Epith Cells (Few) /hpf Urine Bacteria /hpf Urine Casts POC Urine HCG, Qual Negative (Negative) ECG Data EKG #1: Attestation: I personally reviewed and interpreted this ECG as follows: ECG completion date: 06/18/24 ECG completion time: 12:26 Prior ECG tracings: not available for review Interpretation: Sinus rhythm, rate 75, normal axis, no ST segment elevations or T-wave inversions concerning for ischemia, normal intervals with QTC of 404. Discharge Plan Discharge Clinical Impression: Lightheadedness, Medication side effects Patient Disposition: Home Condition: Stable Instructions: Antibiotic Form, Escitalopram (By mouth), Lightheadedness (ED) Additional Instructions: You were seen in the emergency department. Your labs and EKG are not concerning for abnormal heart rhythm. Your thyroid function is normal. A chest x-ray was not concerning for abnormality of the lungs or heart. Your thyroid function is normal. I suspect your symptoms are related to side effect of the escitalopram. I recommend following up with your primary care doctor. If you develop chest pain, shortness of breath, loss of consciousness, or if you have other emergent concerns for life, limb, or eyesight, return to the emergency department. Patient Language: Eritrean Prescriptions: Held escitalopram oxalate 10 mg tablet 10 mg PO DAILY Hold Instructions: Resume on 07/09/24. Discuss further use of this medication with her primary care doctor No Action spironolactone 100 mg tablet 100 mg PO DAILY Patient Comments: Takes for skin condition. ergocalciferol (vitamin D2) 1,000 unit capsule 1,000 mcg PO DAILY famotidine [Acid Controller] 20 mg tablet 20 mg PO DAILY hydrocodone-acetaminophen 5-325 mg tablet 1 tablet PO Q6H PRN (Reason: pain) Qty: 20 0RF ondansetron 4 mg tablet,disintegrating 4 mg PO Q6H PRN (Reason: nausea and vomiting) Qty: 14 0RF Follow-up/Referrals: Fermin,Sadaf Christopher DO [Primary Care Provider] - 2 Weeks Time of Disposition: 14:32
[2024-06-18 14:47] VITALS: BP 126/77; PULSE 82; RESP 16; O2SAT 100
== END 2024-06-18 14:50 | disposition home or self-care (01) ==
PROVIDERS: Emergency Provider Preventive Medicine Aerospace Medicine; PCP Family Medicine
DX: R42 Dizziness and giddiness (principal); T43.225A Adverse effect of selective serotonin reuptake inhibitors, initial encounter; K21.9 Gastro-esophageal reflux disease without esophagitis; F41.9 Anxiety disorder, unspecified; J45.909 Unspecified asthma, uncomplicated; R94.31 Abnormal electrocardiogram [ECG] [EKG]
CPT/HCPCS: 36415; 71046; 80053; 81001; 81025; 84443; 85025; 93005; 99283

== ENCOUNTER 2024-11-11 17:50 | Emergency (ER) | payer OTHER, SELFPAY ==
--- OUTSIDE RECORDS SUMMARY | 2024-11-10 19:00 | XMS_ITS | Continuity of Care Document ---
Author Organization [facility] Address [address] [place] [id number] Phone Care Team Providers Care Setter Out Name Role Phone Oscar FRANK, FACC, Melvin NARANJO Unavailable U navailable Advance Directives Directive Yes / No Effective Date File Name No Information Encounters Encounter Description Practice Location Reason(s) For Visit Diagnoses Date Provider Providers Copied on Encounter [facility], [address] [place] [address], [id number], tel:[phone] [facility] [place] No Information Oscar Charles. [address] [place] [address], [id number], . tel:[phone] Referring Provider: Melvin Vásquez, [address] [place] [address], [place], [address]. tel:[phone] Family History Family Member Type Diagnosis Age At Onset No Information Payers Payer name Insurance type Covered republican ID Authoriza tion(s) [employer] OPEN ACCESS CI [id number] Social History Type Description Quantity Date Captured Comments Sex Female Smoking Status No Information Chief Complaint And Reason For Visit No Information Reason For Referral Reason For Referral No Information Plan Of Treatment Date Type Action Status Appointment Epifanio Moore BOOKED History Of Present Illness Encounter Date Complaint History Of Prese nt Illness No Information Functional Status Date Functional Assessmen t No Information Instructions Date Instruction Additional Infor mation No Information Assessments Type Assessment Date No Information Patient Care Teams Name Effective Dates (start - stop) Status Members No Information
--- NOTE | ~2024-11-11 | XR_ITS ---
Examination: XR chest 2V Clinical History: cp, PT STATES 'CHEST PAIN FEELS LIKE BURNING' Comparison: 06/18/2024 Technique: PA and Lateral Findings: Cardiomediastinal silhouette normal size and configuration. Lungs clear. No acute bony abnormality. Cholecystectomy clips. IMPRESSION: 1. No acute cardiopulmonary findings. Reviewed, dictated and finalized at location R.
--- NOTE | ~2024-11-11 | CT_ITS ---
CT HEAD NON-CONTRAST Clinical History: UNGER vision changes on Monday Comparison: None Technique: Unenhanced axial images skull base to vertex Coronal, sagittal reformats CT images acquired with automatic exposure control for dose reduction DLP: 605 mGy-cm Findings: Sulci, ventricles: Unremarkable. No intracerebral hemorrhage. No evidence acute territorial infarct. No mass effect, midline shift. Bony calvarium intact. Visualized paranasal sinuses: Clear. Mastoid air cells: Clear. IMPRESSION: 1. No acute intracranial findings. Reviewed, dictated and finalized at location R.
[2024-11-11 17:55] VITALS: BP 142/78; PULSE 105; RESP 20; TEMP 37.1; O2SAT 100
--- NOTE | 2024-11-11 17:55 | ECG_ITS ---
Test Date: 2024-11-11 17:56:46 Measurements Intervals [place] Rate: 98 P: 44 TN: 138 QRS: 5 QRSD: 76 T: 6 QT: 331 QTc: 424 Interpretive Statements SINUS RHYTHM Compared to ECG 06/18/2024 12:26:59 T-wave abnormality no longer present Electronically Signed On 11-12-2024 14:42:43 CDT by Beverley Alcaraz M.D.
--- NOTE | 2024-11-11 18:11 | ED_ITS ---
HPI - Recheck/Abnormal Lab/Rx General Chief Complaint: Recheck/Abnormal Lab/Rx Stated Complaint: high BP, HTN crisis Monday Time Seen by Provider: 11/11/24 17:59 Source: patient Mode of arrival: ambulatory Limitations: no limitations History of Present Illness HPI narrative: Patient is a 24 y/o female, with PMH of HTN, anxiety, who presents to the ED with c/o HTN, chest pain. Patient reports over the past 4 days she has been having intermittent midsternal chest pain. Described as an intermittent burning. Pain became worse today which prompted her presentation. She also reports having a intermittent headache over the past several days. Has been taking Tylenol at home without improvement. Denies history of migraines. Reports she had an episode of hypertensive crisis on Monday at work. States her blood pressure was elevated to 150/105. She had a headache at that time and states her vision temporarily went black.Has not had any further vision changes. Is on amlodipine 2.5 mg daily for her high blood pressure. Denies shortness of breath, pain or swelling in legs. Related Data Home Medications ?Medication ?Instructions ?Recorded ?Confirmed ?Last Taken ?Type spironolactone 100 mg tablet 100 mg PO DAILY 05/16/24 06/19/24 06/02/24 History ergocalciferol (vitamin D2) 1,000 1,000 mcg PO DAILY 0 05/22/24 06/19/24 05/31/24 History unit capsule famotidine 20 mg tablet (Acid 20 mg PO DAILY 05/22/24 06/19/24 06/02/24 History Controller) Allergies Allergy/AdvReac Type Severity Reaction Status Date / Time Penicillins Allergy Hives Verified 11/11/24 18:02 Sulfa (Sulfonamide Allergy Unknown Verified 11/11/24 18:02 Antibiotics) sulfamethoxazole (From Allergy Hives Verified 11/11/24 18:02 Sulfamethoxazole-Trimethoprim) trimethoprim (From Allergy Hives Verified 11/11/24 18:02 Sulfamethoxazole-Trimethoprim) Review of Systems 2 Review of Systems: All systems reviewed & are unremarkable except as noted in HPI. All systems reviewed & are unremarkable except as noted in HPI and below PMFSH Past Medical History Medical History GERD (gastroesophageal reflux disease) Morbid obesity Marijuana smoker Anxiety Asthma Surgical History Surgical History Hx laparoscopic cholecystectomy 06/03/[address] Pratre Family History Family History Father Alcohol abuse Cancer Diabetes mellitus Mother Asthma Cancer Depression Anxiety Hypertension Thyroid disease Cerebrovascular accident Social History Social History Smoking status: Never smoker Alcohol intake: never Substance use: current Substance use type: marijuana Other substance usage details: Marijuana at night Do You Feel Safe in your Home?: Yes Lack of Transportation: No Lack of Food: Never True Current Housing: I Have Housing Concerned About Future Housing: No Difficulty Paying Gas/Electric Bills: No Difficulty Paying for Meds: No Currently Unemployed: No Education: High School Diploma/GED Difficulty w/ Childcare or Family Care: No Living arrangements: with family Occupation/Education: occupation Gender identity (if verbalized by the patient): Female Spiritual care concerns: No Exam 2 Narrative: GENERAL: Well appearing, obese with BMI of 38.7, non-toxic, in no acute distress. HEAD: Normocephalic, atraumatic. RESPIRATORY: Airway patent, respirations nonlabored. Clear to auscultation bilaterally, no rales, rhonchi, wheezing. CARDIOVASCULAR: Regular rate and rhythm without murmurs, rubs, or gallops. ABDOMINAL: Soft, nontender, nondistended. Normoactive BS. MUSCULOSKELETAL: Moves all extremities. No gross deformities. No midsternal chest wall tenderness. No peripheral edema. No calf tenderness. SKIN: Warm, dry, normal color. NEURO: A&O X3. Speech clear. Cranial nerves II-XII grossly intact. Steady gait. No ataxic movements. No focal deficits. PSYCHIATRIC: Appropriate mood and affect. Normal interaction. Course Vital Signs Vital signs: Vital Signs Temperature 98.7 F 11/11/24 17:55 Pulse Rate 105 H 11/11/24 17:55 Respiratory Rate 20 11/11/24 17:55 Blood Pressure 142/78 H 11/11/24 17:55 Pulse Oximetry 100 11/11/24 17:55 Oxygen Delivery Room Air 11/11/24 17:55 Temperature 98.7 F 11/11/24 17:55 Pulse Rate 94 11/11/24 18:55 Respiratory Rate 18 11/11/24 18:55 Blood Pressure 130/87 11/11/24 18:55 Pulse Oximetry 99 11/11/24 18:55 Oxygen Delivery Room Air 11/11/24 17:55 MDM - Recheck/Abnormal Lab/Rx MDM Narrative Medical decision making narrative: Patient presented to ED with chest pain, headache, history of recent elevated blood pressures. Initial blood pressure upon arrival 142/78. This improved into the 130s and down to 118 systolic without intervention. Vitals are otherwise stable. Patient in no acute distress. EKG without concerning ischemic changes. Baseline troponin negative. Patient denying any shortness of breath. Low risk Wells score. No signs or symptoms of DVT on exam. No significant risk factors for blood clots. Chest x-ray is clear. CT brain negative. 3 hour troponin also undetectable. Patient given migraine cocktail in the ED. On reeval, she is feeling significantly improved. Headache resolved. Blood pressure 120 over 80s. Feel she is safe for discharge home at this time. Discussed further headache management, recommended she monitor her blood pressures at home. Recommended close follow-up with PCP for further evaluation. She has an appointment tomorrow. Discussed return precautions. She is in agreement plan, feels comfortable going home. Discharged in stable condition. Medical Records Attestation: I reviewed the patient's medical records. Lab Data Attestation: I reviewed the patient's lab results. 11/11/24 18:05 11/11/24 18:05 Labs: Lab Results 11/11/24 11/11/24 Range/Units 18:05 20:52 WBC 9.3 (4.5-10.0) K/mm3 RBC 4.70 (4.2-5.4) M/mm3 Hgb 14.1 (12.0-15.0) g/dL Hct 42.2 (37.0-47.0) % MCV 89.8 (80-100) fl MCH 30.0 (26-34) pg MCHC 33.4 (32-36) g/dl RDW 11.9 (11.5-14.5) % Plt Count 368 (150-375) k/mm3 MPV 9.6 (7.4-10.4) fl Immature Gran % (Auto) 0.2 (0-0.5) % Neut % (Auto) 54.2 (45.5-73.1) % Lymph % (Auto) 35.3 (18.3-44.2) % [place] % (Auto) 8.2 (2.6-8.5) % Eos % (Auto) 1.7 (0-4.4) % Baso % (Auto) 0.4 (0.2-1.2) % Lymph # (Auto) 3.28 H (0.9-3.2) K/mm3 [place] # (Auto) 0.8 H (0.1-0.6) K/mm3 Eos # (Auto) 0.2 (0-0.3) K/mm3 Baso # (Auto) 0.0 (0.0-0.1) K/mm3 Abs Immat Gran (auto) 0.02 (0.00-0.031) K/mm3 Absolute Neuts (auto) 5.0 (1.3-6.7) K/mm3 Absolute Nucleated RBC 0.000 (0.0-0.012) K/mm3 Nucleated RBC % 0.0 (0.0-0.2) % PT 14.5 (11.1-14.7) Seconds INR 1.1 APTT 24.7 (22.3-36.8) Seconds Sodium 136 L (137-145) mmol/L Potassium 4.3 (3.4-5.0) mmol/L Chloride 100 (98-107) mmol/L Carbon Dioxide 23 (22-30) mmol/L Anion Gap 13 H (4-12) mmol/L BUN 13 (7-17) mg/dL Creatinine 0.79 (0.7-1.0) mg/dL Estim Creat Clear Calc 110 ml/min Estimated GFR > 60 (59 - ) Glucose 107 (65-110) mg/dL Calcium 9.5 (8.4-10.2) mg/dL Total Bilirubin 0.6 (0.2-1.3) mg/dL AST 31 (14-36) U/L ALT 31 (6-35) U/L Alkaline Phosphatase 84 (38-126) U/L Troponin I < 0.012 < 0.012 (0.000-0.034) ng/mL Total Protein 8.9 H (6.3-8.2) g/dL Albumin 4.9 (3.5-5.1) g/dL Lipase 99 (23-300) U/L Imaging Data Attestation: I personally reviewed and interpreted this imaging study as follows: Radiologist's impression: ITS Impressions Chest X-Ray 11/11/24 18:32 IMPRESSION: 1. No acute cardiopulmonary findings. Head CT 11/11/24 18:51 IMPRESSION: 1. No acute intracranial findings. ECG Data EKG #1: Attestation: I personally reviewed and interpreted this ECG as follows: ECG completion date: 11/11/24 ECG completion time: 17:56 EKG Interpretation: normal rate (98), sinus rhythm and non-specific ST changes Discharge Plan Discharge Clinical Impression: Atypical chest pain, Situational hypertension Headache Qualifiers: Headache type: unspecified Headache chronicity pattern: acute headache I ntractability: not intractable Qualified Code(s): R51.9 - Headache, unspecified Patient Disposition: Home Condition: Stable Instructions: Antibiotic Form, Chest Pain (ED), Acute Headache (ED), Chronic Hypertension (ED) Additional Instructions: Your workup here was reassuring. Continue Tylenol and ibuprofen as needed for further headaches. Get plenty of rest. Stay well hydrated. Recommend low light/ low stimulus environment, limiting screen time. Continue to monitor your blood pressure at home and keep recording of these numbers. Follow-up with your primary care doctor for further evaluation if needed. Return to the ED if you experience worsening or severe pain, severe dizziness, further vision changes, passing out, worsening chest pain, difficulty breathing, unable to keep down food or drink, or any other symptoms of concern. Patient Language: Occitan Prescriptions: No Action spironolactone 100 mg tablet 100 mg PO DAILY Patient Comments: Takes for skin condition. ergocalciferol (vitamin D2) 1,000 unit capsule 1,000 mcg PO DAILY famotidine [Acid Controller] 20 mg tablet 20 mg PO DAILY Follow-up/Referrals: Fermin,Sadaf Christopher DO [Primary Care Provider, Unknown] Time of Disposition: 21:29 Quality HEART score for chest pain patients History: slightly suspicious ECG: normal Age: < or = to 45 years Risk factors: 1 or 2 risk factors Troponin: < or = to 1x normal limit Heart score: 1
[2024-11-11 18:12] LABS: Hematocrit 42.2 % (37.0-47.0); Hemoglobin 14.1 g/dL (12.0-15.0); Immature Granulocyte Percent A 0.2 % (0-0.5); Lymphocytes Absolute Auto 3.28 K/mm3 (0.9-3.2); Mean Corpuscular HGB Conc 33.4 g/dl (32-36); Mean Corpuscular Hemoglobin 30.0 pg (26-34); Mean Corpuscular Volume 89.8 fl (80-100); Nucleated Red Blood Cells Absolute Auto 0.000 K/mm3 (0.0-0.012); Nucleated Red Blood Cells Perc 0.0 % (0.0-0.2); Platelet Count Result 368 k/mm3 (150-375); Red Blood Count 4.70 M/mm3 (4.2-5.4); White Blood Count 9.3 K/mm3 (4.5-10.0)
[2024-11-11 18:26] LABS: Alanine Aminotransferase 31 U/L (6-35); Albumin Level 4.9 g/dL (3.5-5.1); Alkaline Phosphatase 84 U/L (38-126); Anion Gap 13 mmol/L (4-12); Aspartate Amino Transferase 31 U/L (14-36); Bilirubin,Total 0.6 mg/dL (0.2-1.3); Blood Urea Nitrogen 13 mg/dL (7-17); Calcium 9.5 mg/dL (8.4-10.2); Carbon Dioxide 23 mmol/L (22-30); Chloride 100 mmol/L (98-107); Estimated CRCL calculation 110 ml/min; Estimated Glomerular Filt Rate > 60; Glucose 107 mg/dL (65-110); Lipase 99 U/L (23-300); Potassium 4.3 mmol/L (3.4-5.0); Sodium 136 mmol/L (137-145); Total Protein 8.9 g/dL (6.3-8.2)
[2024-11-11 18:37] LABS: Troponin I < 0.012 ng/mL (0.000-0.034)
[2024-11-11 18:40] LABS: INR 1.1; Prothrombin Time 14.5 Seconds (11.1-14.7)
[2024-11-11 18:41] LABS: Partial Thromboplastin Time 24.7 Seconds (22.3-36.8)
[2024-11-11] MEDS: BELLADONNA ALK/PHENOB ELIX 10 ML, MAG HYDROX/ALUMINUM HYD/SIMETH 30 ML, LIDOCAINE 2% VI... PO (18:51)
[2024-11-11] MEDS: SODIUM CHLORIDE 0.9% IV 1,000 ML 999 ML IV CONT (18:53)
[2024-11-11 18:55] VITALS: BP 130/87; PULSE 94; RESP 18; O2SAT 99
[2024-11-11] MEDS: METOCLOPRAMIDE HCL INJ 10 MG/2 ML VIAL IV PUSH (18:55)
--- OUTSIDE RECORDS SUMMARY | 2024-11-11 19:11 | XMS_ITS | Clinical Summary ---
Author Organization [facility] Address [address] [place] [address] Care Team Providers Care Livestock Counter Name Role Phone Unavailable Primary Care Provider Unavailabl e Source Comments [facility],non-owned Affiliates and Associated Physician Practices is amultiple site organization consisting of ambulatory clinics and hospital sitesin [place], [place], [place] and [place]. This disclosure is being madepursuant to the Care Everywhere program and may not contain all information available regarding this patient. 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 Gender Identity Not on file Sexual Orientation Not on file Plan of Treatment Health Maintenance Due Date Last Done Comments HIV SCREENING 08/22/2014 HPV VACCINE (1 - 3-dose series) 08/22/2014 CHLAMYDIA/GONORRHEA SCREENING 2015 HEPATITIS C SCREENING 08/18/2017 DTAP/TDAP/TD VACCINES (1 - Tdap) 08/22/2018 HEPATITIS B VACCINE (1 of 3 - 19+ 3-dose series) 08/22/2018 PAP SMEAR 08/22/2020 DEPRESSION SCREENING 02/14/2024 COVID-19 VACCINE (1 - 2023-2 5 season) 2024 INFLUENZA VACCINE (#1) 2024 ZOSTER VACCINE (1 of 2) 08/22/2049 [...] age to complete this topic Insurance [employer] SELF PAY NO INSURANCE Member Subscriber Plan / Payer (Ef fective for All Dates) Name:DaveReva Kilo Member ID:Not on file Relation to Subscriber:Not on file Name:DAVEREVA Kilo Subscriber ID:Not on file (Home) Address: [address] [place] [id number] Payer ID:Not on file Group ID:Not on file Type:Self Pay Address: [place], [place]
--- NOTE | 2024-11-11 20:35 | ECG_ITS ---
Test Date: 2024-11-11 20:41:22 Measurements Intervals [place] Rate: 67 P: 11 OK: 124 QRS: 12 QRSD: 85 T: 0 QT: 389 QTc: 411 Interpretive Statements SINUS RHYTHM WITH SINUS ARRHYTHMIA MODERATE T-WAVE ABNORMALITY, CONSIDER ANTERIOR ISCHEMIA [-0.1+ mV T-WAVE IN V3/V4] Compared to ECG 06/18/2024 12:26:59 Possible ischemia now present T-wave abnormality still present Electronically Signed On 11-11-2024 20:44:30 CDT by Beverley Alcaraz M.D.
[2024-11-11 21:20] LABS: Troponin I < 0.012 ng/mL (0.000-0.034)
[2024-11-11 21:45] VITALS: BP 114/80; PULSE 72; RESP 20; O2SAT 99
[2024-11-11 21:59] VITALS: BP 118/80; PULSE 70; RESP 19; O2SAT 99
== END 2024-11-11 22:00 | disposition home or self-care (01) ==
PROVIDERS: Emergency Medicine; Emergency Provider Physician Assistant; PCP Family Medicine
DX: R07.89 Other chest pain (principal); R51.9 Headache, unspecified; I10 Essential (primary) hypertension; F41.9 Anxiety disorder, unspecified; F12.90 Cannabis use, unspecified, uncomplicated
CPT/HCPCS: 36415; 70450; 71046; 80053; 83690; 84484; 85025; 85610; 85730; 93005; 96361; 96374; 96375; 99284; A9270; J1200; J2765; J7030